=== PATIENT | male | born 1965 | race Caucasian/White ===

== ENCOUNTER → 2017-10-09 | Day surgery (SDC) | payer BC ==
[2017-10-07 15:47] LABS: BASOPHILS # (AUTO) 0.1 (0.0-0.1); BASOPHILS % 0.6 % (0.0-1.0); EOSINOPHILS # (AUTO) 0.7 (0.0-0.4); EOSINOPHILS % 5.8 % (0.0-6.0); HEMOGLOBIN 14.7 g/dL (14.0-18.0); LYMPHOCYTES # (AUTO) 3.6 (1.0-3.2); LYMPHOCYTES % 28.7 % (18.0-39.1); MEAN CORPUSCULAR HEMOGLOBIN 29.6 pg (28-32); MEAN CORPUSCULAR HGB CONC 34.2 g/dL (31-35); MEAN CORPUSCULAR VOLUME 86.7 fL (81-99); MONOCYTES # (AUTO) 0.7 (0.2-0.8); MONOCYTES % 5.9 % (4.4-11.3); NEUTROPHILS # (AUTO) 7.3 (2.1-6.9); NEUTROPHILS % 58.6 % (38.7-80.0); PLATELET COUNT 292 x10e3/uL (140-360); RED BLOOD COUNT 4.96 x10e6/uL (4.3-5.7); RED CELL DISTRIBUTION WIDTH 14.1 % (11.7-14.4)
[2017-10-07 16:06] LABS: ANION GAP 14.7 mmol/L (8-16); BLOOD UREA NITROGEN 15 mg/dL (7-26); BUN/CREATININE RATIO 13 (6-25); CALCIUM 9.5 mg/dL (8.4-10.2); CARBON DIOXIDE 24 mmol/L (22-29); CHLORIDE 103 mmol/L (98-107); CREATININE, SERUM 1.18 mg/dL (0.72-1.25); EST GLOMERULAR FILTRATION RATE > 60 ML/MIN (60-); GLUCOSE 171 mg/dL (74-118); POTASSIUM 3.7 mmol/L (3.5-5.1); SODIUM 138 mmol/L (136-145)
[~2017-10-09] MED LIST: ACETAMINOPHEN 1000 MG/100 ML 0 ML IV ONE; ACETAMINOPHEN 1000 MG/100 ML 100 ML IV ONE; ACETAMINOPHEN 1000 MG/100 ML IV ONE; ATORVASTATIN CA40 MG PO; DESFLURANE 240 ML BTL INH ONE; DEXAMETHASONE SOD PHOS INJ 4 MG/ML VIAL ONE; FENOFIBRATE160 MG PO; FENTANYL CITRATE/PF 100MCG/2 ML INJ ONE; FIASP INJ; JARDIANCE PO; LANTUS100 UNIT/1; LIDOCAINE 1% W/EPINEPHRINE 20 ML VIAL ONE; LIDOCAINE HCL 2% LOCAL INJ 5 ML SDV VIAL INJ ONE; LOSARTAN POTAS100 MG PO; METFORMIN HCL1000 MG PO; MIDAZOLAM HCL 2 MG/2 ML VIAL ONE; MUPIROCIN 2% OINT 22 GM TUBE ONE; NOVOLOG100 UNIT/1 SQ; ONDANSETRON HCL INJ 2 MG/ML VIAL ONE; OXYMETAZOLINE HCL 0.05% NAS 1 SPRAY BTL ONE; PROPOFOL IV EMULSION 10 MG/ML 20 ML VIAL ONE; ROCURONIUM BROMIDE 10 MG/ML 5ML VIAL ONE; SODIUM CHLORIDE/ALOE VERA 14.1GM NASAL GEL ONE; TRESIBA INJ
--- NOTE | 2017-10-09 10:31 | Operative Report ---
DATE OF PROCEDURE: October 09, 2017 PREOPERATIVE DIAGNOSES 1. Nasal obstruction. 2. Deviated septum. 3. Turbinate hypertrophy. POSTOPERATIVE DIAGNOSES 1. Nasal obstruction. 2. Deviated septum. 3. Turbinate hypertrophy. PROCEDURES: Septoplasty and bilateral inferior turbinate reduction (Arthrocare coblation). SIGNIFICANT FINDINGS: Deviated septum to the left. Bilateral inferior turbinate hypertrophy. 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 ANESTHESIA: General endotracheal tube anesthesia. SPECIMENS REMOVED: None. ESTIMATED BLOOD LOSS: Less than 5 mL. COMPLICATIONS: None. INDICATIONS: Patient is a 51-year-old white male with greater than 2-year history of nasal obstruction, worse on the left. The nasal obstruction has been refractory to maximum medical treatment and precludes the use of CPAP for the treatment of his obstructive sleep apnea. Physical exam reveals deviated septum to the left and turbinate hypertrophy. He is scheduled for septoplasty and turbinate reduction for the treatment of deviated septum and turbinate hypertrophy which is causing nasal obstruction. Risks and complications of the procedures were thoroughly discussed with the patient; and they include infection; bleeding; scarring; failure to improve; need for additional operations; persistent nasal obstruction; septal perforation resulting in crusting, irritation and bleeding; chronic pain; inability to smell or taste; chronic headaches; leakage of cerebrospinal fluid or brain fluid; need for blood transfusions; damage to surrounding nerves, blood vessels and muscles. He fully understands and gives consent. PROCEDURE: Patient was taken to the operating room and placed supine on the operating table where general anesthesia was achieved through orotracheal intubation. Eyes were taped. Antibiotics were administered intraoperatively. Injection with 5 mL of 1% lidocaine with 1:100,000 epinephrine was injected into the submucoperichondrial planes bilaterally followed by packing of the nose with cottonoid pledgets soaked with Afrin. The face was prepped and draped in the usual sterile fashion. The cottonoid pledgets were then removed. Thorough examination with a 0-degree rigid nasal endoscope revealed deviated septum to the left, primarily involving the posterior bony septum and the posterior aspect of the maxillary crest. A hemitransfixion incision was made on the left-hand side with a #15 blade. Overlying mucoperichondrium was elevated off the left side with a Denver elevator past the bony cartilaginous junction. The quadrangular cartilage was disarticulated from the bony septum. The deviated bony septum was taken down with Dee double-action rongeurs. The deviated posterior maxillary crest was removed with chisel and hammer. In this way, the septum became straight. The bilateral inferior turbinates were then reduced with the ArthroCare coblator. Multiple passes were made on each side involving the anterior portion. The inferior turbinates were then lateralized with a Boies elevator. Following this, the nasal passages were significantly widened bilaterally. Following this, the hemitransfixion incision was repaired with interrupted 4-0 Monocryl followed by the placement of bilateral silastic septal splints coated with antibiotic ointment. These were held in place with [id number]-[id number]-jfguisc 2-0 silk. Abdullahi Merocel packs were then also inserted bilaterally, which were coated with antibiotic ointment. Strings were tied loosely around the columella anteriorly. Patient was awakened in the operating room, extubated and taken to the recovery room in good condition. Job#: [id number] KADI LUNA
== END | disposition home or self-care (01) ==
LOC: OR 05:48
PROVIDERS: ATTEND Otolaryngology
DX: J34.2 Deviated nasal septum (principal); J34.89 Other specified disorders of nose and nasal sinuses; J34.3 Hypertrophy of nasal turbinates; G47.33 Obstructive sleep apnea (adult) (pediatric); E11.9 Type 2 diabetes mellitus without complications; E78.00 Pure hypercholesterolemia, unspecified; I10 Essential (primary) hypertension; K21.9 Gastro-esophageal reflux disease without esophagitis; Z01.810 Encounter for preprocedural cardiovascular examination; Z01.812 Encounter for preprocedural laboratory examination; Z79.4 Long term (current) use of insulin; Z87.891 Personal history of nicotine dependence
CPT/HCPCS: 30520; 30802; 36415 ×2; 80048; 82948; 85025; 93005; J1100; J2001; J2250; J2405

== ENCOUNTER 2018-08-01 16:39 | Inpatient (IN) | payer BC ==
[~2018-08-01] VITALS: Ht 172.7 cm; Wt 91.8 kg
[~2018-08-01 16:39] MED LIST changes: -ACETAMINOPHEN 1000 MG/100 ML 0 ML IV ONE; -ACETAMINOPHEN 1000 MG/100 ML 100 ML IV ONE; -ACETAMINOPHEN 1000 MG/100 ML IV ONE; -DESFLURANE 240 ML BTL INH ONE; -DEXAMETHASONE SOD PHOS INJ 4 MG/ML VIAL ONE; -FENTANYL CITRATE/PF 100MCG/2 ML INJ ONE; -LIDOCAINE 1% W/EPINEPHRINE 20 ML VIAL ONE; -LIDOCAINE HCL 2% LOCAL INJ 5 ML SDV VIAL INJ ONE; -MIDAZOLAM HCL 2 MG/2 ML VIAL ONE; -MUPIROCIN 2% OINT 22 GM TUBE ONE; -ONDANSETRON HCL INJ 2 MG/ML VIAL ONE; -OXYMETAZOLINE HCL 0.05% NAS 1 SPRAY BTL ONE; -PROPOFOL IV EMULSION 10 MG/ML 20 ML VIAL ONE; -ROCURONIUM BROMIDE 10 MG/ML 5ML VIAL ONE; -SODIUM CHLORIDE/ALOE VERA 14.1GM NASAL GEL ONE
[2018-08-01 18:04] LABS: BASOPHILS # (AUTO) 0.1 (0.0-0.1); BASOPHILS % 0.6 % (0.0-1.0); EOSINOPHILS # (AUTO) 0.6 (0.0-0.4); EOSINOPHILS % 4.9 % (0.0-6.0); HEMATOCRIT 44.8 % (38.2-49.6); HEMOGLOBIN 15.2 g/dL (14.0-18.0); LYMPHOCYTES # (AUTO) 3.9 (1.0-3.2); LYMPHOCYTES % 33.2 % (18.0-39.1); MEAN CORPUSCULAR HEMOGLOBIN 29.2 pg (28-32); MEAN CORPUSCULAR HGB CONC 33.9 g/dL (31-35); MEAN CORPUSCULAR VOLUME 86.2 fL (81-99); MONOCYTES # (AUTO) 0.6 (0.2-0.8); MONOCYTES % 4.9 % (4.4-11.3); NEUTROPHILS # (AUTO) 6.6 (2.1-6.9); PLATELET COUNT 328 x10e3/uL (140-360); RED CELL DISTRIBUTION WIDTH 14.8 % (11.7-14.4)
[2018-08-01 18:08] LABS: INR 0.95; PARTIAL THROMBOPLASTIN TIME 35.6 seconds (23.8-35.5); PROTHROMBIN TIME 13.2 seconds (11.9-14.5)
[2018-08-01 18:17] LABS: ALANINE AMINOTRANSFERASE 19 IU/L (0-55); ALBUMIN 3.9 g/dL (3.5-5.0); ALBUMIN/GLOBULIN RATIO 1.3 (0.8-2.0); ALKALINE PHOSPHATASE 81 IU/L (40-150); ANION GAP 12.9 mmol/L (8-16); BLOOD UREA NITROGEN 13 mg/dL (7-26); BUN/CREATININE RATIO 13 (6-25); CALCIUM 9.5 mg/dL (8.4-10.2); CARBON DIOXIDE 23 mmol/L (22-29); CHLORIDE 107 mmol/L (98-107); CREATININE, SERUM 0.98 mg/dL (0.72-1.25); EST GLOMERULAR FILTRATION RATE > 60 ML/MIN (60-); GLUCOSE 77 mg/dL (74-118); POTASSIUM 3.9 mmol/L (3.5-5.1); SODIUM 139 mmol/L (136-145)
[2018-08-01] MEDS ORDERED: LORAZEPAM INJ 2 MG/ML VIAL IV ONE (18:45)
[2018-08-01] MEDS ORDERED: SODIUM CHLORIDE FLUSH 10 ML SYR INJ PRN (19:15)
--- NOTE | 2018-08-01 19:56 | Diagnostic Imaging Report ---
EXAMINATION: CHEST SINGLE (PORTABLE) INDICATION: ^r/o tumor ^[id number] ^1750 ^Y COMPARISON: None FINDINGS: AP view TUBES and LINES: None. LUNGS: Lungs are well inflated. Lungs are clear. There is no evidence of pneumonia or pulmonary edema. PLEURA: No pleural effusion or pneumothorax. HEART AND MEDIASTINUM: The cardiomediastinal silhouette is unremarkable.. BONES AND SOFT TISSUES: No acute osseous lesion. Soft tissues are unremarkable. UPPER ABDOMEN: No free air under the diaphragm. IMPRESSION: No acute thoracic abnormality. Signed by: Dr. Alessandra Jarvis M.D. on 08/01/2018 7:52 PM
[2018-08-01] MEDS ORDERED: NUVIGIL150 MG PO (20:05)
[2018-08-01] MEDS ORDERED: ACETAMINOPHEN 325 MG TAB PO PRN (20:15)
[2018-08-01] MEDS ORDERED: HYDRALAZINE HCL 20 MG/ML VIAL IV PRN (20:15)
[2018-08-01] MEDS ORDERED: DEXTROSE 50% SYRINGE 50 ML IV PRN (20:15)
[2018-08-01 20:27] LABS: BILIRUBIN,URINE NEGATIVE (NEGATIVE); CLARITY,URINE CLEAR (CLEAR); COLOR,URINE YELLOW (YELLOW); KETONES,URINE NEGATIVE (NEGATIVE); LEUKOCYTE ESTERASE ,URINE NEGATIVE (NEGATIVE); NITRITE,URINE NEGATIVE (NEGATIVE); PROTEIN,URINE DIPSTICK NEGATIVE (NEGATIVE); URINE UROBILINOGEN 0.2 mg/dL (0.2 - 1)
[2018-08-01 20:41] LABS: BACTERIA,URINE RARE /HPF
[2018-08-01] MEDS ORDERED: OMEPRAZOLE40 MG PO (21:03)
[2018-08-01] MEDS: INSULIN LISPRO 100 UNIT/1 ML 3ML VIAL SQ SCH (21:13)
[2018-08-01] MEDS: ONDANSETRON HCL INJ 2MG/ML 2ML 2 MG/ML VIAL IV PRN (22:34)
[2018-08-01] MEDS: MORPHINE SULFATE INJ 4 MG/ML INJ 1ML IV PRN (22:38)
[2018-08-02 03:20] LABS: BASOPHILS % 0.4 % (0.0-1.0); EOSINOPHILS # (AUTO) 0.6 (0.0-0.4); EOSINOPHILS % 4.9 % (0.0-6.0); HEMATOCRIT 43.4 % (38.2-49.6); HEMOGLOBIN 14.4 g/dL (14.0-18.0); LYMPHOCYTES # (AUTO) 3.9 (1.0-3.2); LYMPHOCYTES % 34.2 % (18.0-39.1); MEAN CORPUSCULAR HEMOGLOBIN 28.9 pg (28-32); MEAN CORPUSCULAR HGB CONC 33.2 g/dL (31-35); MONOCYTES # (AUTO) 0.6 (0.2-0.8); MONOCYTES % 5.1 % (4.4-11.3); NEUTROPHILS # (AUTO) 6.3 (2.1-6.9); PLATELET COUNT 286 x10e3/uL (140-360); RED BLOOD COUNT 4.99 x10e6/uL (4.3-5.7); RED CELL DISTRIBUTION WIDTH 14.8 % (11.7-14.4)
[2018-08-02 03:39] LABS: ANION GAP 11.4 mmol/L (8-16); BLOOD UREA NITROGEN 13 mg/dL (7-26); BUN/CREATININE RATIO 15 (6-25); CALCIUM 8.6 mg/dL (8.4-10.2); CARBON DIOXIDE 24 mmol/L (22-29); CHLORIDE 109 mmol/L (98-107); CREATININE, SERUM 0.86 mg/dL (0.72-1.25); EST GLOMERULAR FILTRATION RATE > 60 ML/MIN (60-); GLUCOSE 70 mg/dL (74-118); MAGNESIUM 2.2 MG/DL (1.3-2.1); POTASSIUM 3.4 mmol/L (3.5-5.1); SODIUM 141 mmol/L (136-145)
[2018-08-02 04:01] LABS: FREE T4 (FREE THYROXINE) 0.96 ng/dL (0.9-1.8); THYROID STIMULATING HORMONE 2.938 uIU/mL (0.350-4.940)
[2018-08-02] MEDS ORDERED: POTASSIUM CHLORIDE 20 MEQ TAB CR PO STA (07:00)
[2018-08-02] MEDS: INSULIN LISPRO 100 UNIT/1 ML 3ML VIAL SQ SCH ×4 (07:25→20:58)
[2018-08-02] MEDS ORDERED: FAMOTIDINE 20 MG TAB PO SCH (07:30)
[2018-08-02] MEDS ORDERED: JARDIANCE PO SCH (09:00)
[2018-08-02] MEDS ORDERED: LOSARTAN POTASSIUM 100 MG TAB PO SCH (09:00)
[2018-08-02] MEDS ORDERED: INSULIN DEGLUDEC INJ SCH (09:00)
[2018-08-02] MEDS: MORPHINE SULFATE INJ 4 MG/ML INJ 1ML IV PRN ×2 (11:55→20:46)
[2018-08-02] MEDS: ONDANSETRON HCL INJ 2MG/ML 2ML 2 MG/ML VIAL IV PRN ×2 (12:00→20:47)
[2018-08-02] MEDS ORDERED: LORAZEPAM INJ 2 MG/ML VIAL IV NR (14:30)
--- NOTE | 2018-08-02 14:34 | Consultation ---
DATE OF CONSULTATION: 08/02/2018 Neurology Consult Note HISTORY OF PRESENT ILLNESS: Mr. Marie is a 52-year-old right-hand dominant man with past medical history significant for hypertension, hyperlipidemia, and diabetes mellitus type 2, admitted to [facility] on August 01, 2018 with multiple symptoms affecting both arms and legs. Of note, a stat consult was placed for Neurology at 1906 hours on August 01, 2018. Neurology was not aware of the consult until approximately 10:30 on 08/02/2018 when I arrived to the hospital to follow up on other patients. Approximately one month ago, the patient experienced the sudden onset of numbness and tingling beginning in his left thumb and progressing over the left hemibody within one day. Approximately 2-3 days later, the patient experienced the sudden onset of numbness and tingling in the right hand with progression over the right hemibody within approximately one day. Shortly, after the onset of the numbness and tingling described above, the patient began to experience pain in his biceps, forearms, hamstrings, and calves. The pain is described as muscle soreness. It is constant, but waxes and wanes in intensity. Furthermore, Mr. Marie endorses burning pain in both forearms and the right bicep. The burning pain is constant and is rated at 3/10. Mr. Marie endorses weakness in multiple muscles in both arms and both legs. He endorses poor balance and incoordination. The aforementioned symptoms are constant, but do wax and wane in severity. For the past several months, the patient has experienced pain over the left side of his neck. The pain is described as sharp and does not radiate. Mr. Marie rates the pain is 6 to 7/10. In addition to the pain, the patient reports limited range of motion and crepitus affecting the cervical spine. Mr. Marie reports all of his symptoms began suddenly, but have gradually worsened over the past few weeks. Near the time of onset of the above symptoms, the patient noted a rash over the dorsal forearms only. There was no rash over the face, chest, or back, or legs. The rash was treated with a topical solution and resolved within 1-1/2 weeks. On June 30, 2018, the patient underwent a MRI of the brain with and without contrast at an outside facility. Per the report, there were no significant findings on the MRI of the brain with and without contrast. Of note, the MRI of the brain with and without contrast was performed prior to the onset of numbness and tingling over the right hemibody as well as the other subsequent symptoms. Mr. Marie does not report a positive family history for nerve or muscle diseases. There is no known family history of autoimmune disorders. REVIEW OF SYSTEMS: Weakness of both arms and both legs, numbness/tingling/burning pain of both arms and both legs, impairment of balance and gait, neck pain, muscle tightness/spasm, and rash. Otherwise, a 12-point review of systems is negative. PAST MEDICAL HISTORY: Hypertension, hyperlipidemia, diabetes mellitus type 2, gastroesophageal reflux disease, obstructive sleep apnea, and erectile dysfunction. PAST SURGICAL HISTORY: Bilateral inguinal hernia repair, appendectomy, repair of a deviated septum. PAST HOSPITALIZATIONS: Surgeries/procedures as listed. FAMILY MEDICAL HISTORY: The patient's paternal and maternal grandparents are . The paternal grandfather had diabetes mellitus and an unknown cancer. The paternal grandmother from coronary artery disease with a myocardial infarction. The maternal grandfather from brain cancer. The maternal grandmother from liver cancer. The patient's father is alive. He has coronary artery disease with a prior myocardial infarction. The patient's mother is . The only known significant medical history for the patient's mother was Parkinson disease. The patient has three brothers, all of whom are living. Two brothers have diabetes mellitus. One brother was diagnosed recently with throat cancer. The patient has two children, one son and one daughter, both of whom are alive and healthy. SOCIAL HISTORY: Mr. Marie is . 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 The patient does report current tobacco use. He smokes a few cigarettes once per week. The patient does report current alcohol use. He consumes alcohol once per week. There is no reported current or prior recreational drug use. HOME MEDICATIONS: Nuvigil 150 mg by mouth daily, NovoLog 30 units subcutaneously with meals, losartan 100 mg by mouth daily, metformin 1000 mg by mouth daily, omeprazole 40 mg by mouth daily, Jardiance 12.5 mg by mouth daily, Tresiba 80 units injected daily. ALLERGIES: NO KNOWN DRUG ALLERGIES. NO KNOWN FOOD ALLERGIES. NO KNOWN ALLERGIES TO LATEX. NO KNOWN ALLERGIES TO IODINE OR OTHER CONTRAST MATERIALS. PHYSICAL EXAMINATION: VITAL SIGNS: Height 69 inches, weight 180 pounds, BMI 26.6 kg/m2, blood pressure 136/93 mmHg, pulse 84 beats per minute, respiratory rate 17 breaths per minute, and oxygen saturation 100% on room air. GENERAL: The patient is awake and alert, does not appear distressed. HEENT: Normocephalic, atraumatic. Pupils are equal, round, and reactive to light. Moist mucous membranes. NECK: Supple. No appreciable thyromegaly. No appreciable carotid bruits. CARDIOVASCULAR: S1, S2, regular rate and rhythm. No murmurs, rubs, or gallops. RESPIRATORY: Clear to auscultation bilaterally. No wheezes, rhonchi, or rales. EXTREMITIES: The skin is dry. The skin is warm with the exception of coolness to touch over the feet. No clubbing, cyanosis, or edema. The posterior tibial and dorsalis pedis pulses are 1+ and symmetric. SKIN: No rashes or lesions. NEUROLOGIC: Memory/Attention: The patient is awake and alert, oriented to person, place, time, and situation. Cranial Nerves: Cranial nerve I - not tested. Cranial nerves II, III, IV, and - pupils are equal and round, react briskly to light (from 4 mm to 2 mm). Extraocular movements intact. No nystagmus. Cranial nerve V - sensation to light touch and pinprick is intact in the bilateral V1 through V3 distributions. Strength in the temporalis and masseter muscles is within normal limits. Cranial nerve VII - the face is symmetric as are all facial movements. Strength is within normal limits. Cranial nerve VIII - hearing is intact to finger rub bilaterally. Cranial nerve 9, 10- the soft palate elevates equally and symmetrically. Cranial nerve XI - normal strength of the bilateral sternocleidomastoid and trapezius muscles. Cranial nerve XII - the tongue protrudes midline and moves symmetrically from [id number]. Strength: Bulk is normal. Muscle consistency is normal. Strength is 5/5 in the right deltoid, biceps, triceps, wrist flexors and extensors, finger flexors and extensors, intrinsic hand muscles, hip flexors, knee flexors and extensors, ankle dorsiflexion, plantar flexion, and intrinsic foot muscles. Strength in the left arm and left leg is 4 to 4+/5 with superimposed effort dependent weakness. Tone is normal. DTRs: Deep tendon reflexes are 3+ and symmetric at the triceps, biceps, brachioradialis, and patellas. Deep tendon reflexes are 1+ and symmetric at the Achilles. Plantar responses are flexor bilaterally. Sensation: Sensation is intact to light touch in both arms and both legs. Sensation is diminished to pinprick over the right leg. Sensation to temperature is diminished over both legs. Vibratory sensation is absent at the toes, but intact at the ankles and fingers. Cerebellar: Ywwfen-sqyd-gqigxl and heel-devi movements are dysmetric on the left, outside the bounds of paresis. Gait: Deferred. Speech: Spontaneous speech is normal without appreciable dysarthria or aphasia. Repetition is intact. Involuntary movements: None. Pronator Drift: None. LABORATORY DATA: A recent basic metabolic panel is significant for a potassium of 3.4, chloride of 109, glucose of 70, and magnesium of 2.2. Liver function panel collected on August 01, 2018, is within normal limits. Hemoglobin A1c 6.1, TSH 2.938, free T4 0.96. The CBC with differential and platelets reveals a white blood cell count of 11.40 with 55.0% neutrophils, 34.2% lymphocytes, 5.1% monocytes, 4.9% eosinophils, and 0.4% basophils. The hemoglobin and hematocrit are 14.2 and 43.4, respectively. The platelet count is 286. PT 13.2, INR 0.95, PTT 35.6. A urinalysis collected on August 01, 2018, is significant for 3+ glucose. A urine culture collected on August 01, 2018 is in progress. Blood cultures collected on August 01, 2018, pending. DIAGNOSTIC STUDIES: Chest x-ray 08/01/2018: No acute thoracic abnormality. ASSESSMENT AND PLAN: Mr. Marie is a 52-year-old right-hand dominant man with multiple vascular risk factors, admitted to [facility] with multiple symptoms as detailed in the history of present illness. The patient's neurological examination is significant for mild left hemiparesis, with superimposed effort dependent weakness, diminished deep tendon reflexes at the Achilles, decreased sensation to pinprick over the right leg, decreased sensation to temperature over both legs, and absent vibratory sensation at the toes. Furthermore, the neurological examination reveals dysmetria of szbqds-pciy-rbhrjx and heel-devi movements on the left, outside the bounds of paresis. Of note, there is no pronator drift on neurological examination. The patient's laboratory data and other diagnostic studies have been reviewed and are documented above. 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 However, the laterality on neurological examination is suspicious for stroke. However, this should have been seen on the prior MRI of the brain without contrast. A lesion or lesions, in the cervical spine could cause the patient's multitude of symptoms as well. RECOMMENDATIONS: As follows: 1. An MRI of the brain without contrast will be performed. 2. An MRI of the cervical spine without contrast will be performed. 3. Muscle enzymes will be drawn. 4. Further evaluation with an NCV/EMG as an outpatient may be necessary. 5. Defer treatment of the remaining medical comorbidities to the primary and other services following the patient. Thank you for this consultation. I will continue to follow the patient while he remains in the hospital. TIME SPENT: 70 minutes. Heather Garcia MD CP/KIERSTEN /[id number] JEREMY
[2018-08-02 15:49] VITALS: BP 133/91
[2018-08-02 15:50] VITALS: BP 133/91
[2018-08-02 15:55] VITALS: BP 133/91
--- NOTE | 2018-08-02 15:58 | Diagnostic Imaging Report ---
Exam: Brain MRI without IV contrast History: Unilateral weakness, sensory disturbance, ataxia Comparison studies: None Technique: Sagittal and axial T2 FS, axial DWI, axial T2*GRE, axial T1 FLAIR and axial coronal T2 FLAIR. Intravenous contrast: None Findings: Scalp: Normal in signal. No masses. Bone marrow: Normal in signal intensity. Brain sulci: Appropriate for age. Ventricles: Normal in size. No hydrocephalus. Extra axial spaces: No mass, no fluid collection. Parenchyma: No mass, hemorrhage or acute ischemia. A few scattered small T2 FLAIR hyperintense foci in the supratentorial white matter are nonspecific but most compatible with chronic microvascular ischemic changes. Suprasellar region: No abnormalities. Craniocervical junction: Patent foramen magnum. No Chiari malformation. Vessels: Normal flow-voids in the arteries and sinuses. Included paranasal sinuses: Scattered nonspecific T2 hyperintense mucosal thickening throughout the bilateral ethmoid air cells and maxillary sinuses. IMPRESSION: 1. No acute intracranial abnormalities. 2. Minimal supratentorial chronic microvascular ischemic changes. Signed by: Dr. Akira Fay M.D. on 08/02/2018 3:55 PM
--- NOTE | 2018-08-02 16:16 | Diagnostic Imaging Report ---
Exam: Cervical spine MRI without IV contrast History: Unilateral weakness, sensory disturbance, ataxia Comparison studies: None Technique: Sagittal T1, T2 and IR, axial T2 and axial gradient echo Intravenous contrast: None Findings: Exam limited by artifacts related to patient motion. Alignment: Mild kyphotic curvature from C4 to C7. Cervicomedullary junction: No abnormalities. Patent foramen magnum. Soft tissues: No T2 hyperintense inflammatory changes. Spinal cord: Focal increased T2 signal changes in the cord centered at C4-C5 at the location of severe degenerative canal stenosis indicative of compressive myelopathy (i.e. edema, ischemia and/or gliosis). Vertebrae: No fractures, infection or neoplasm. Degenerative changes: C2-C3: Mildly degenerated disc. Uncovertebral facet arthrosis result in moderate left foraminal stenosis. No significant canal or right foraminal stenosis. C3-C4: Mildly degenerated disc. Small disc osteophyte complex, uncovertebral arthrosis and facet arthrosis with moderate bilateral foraminal stenosis and mild canal stenosis. C4-C5: Moderately degenerated disc. Disc osteophyte complex, uncovertebral arthrosis and facet arthrosis with severe canal stenosis, severe left foraminal stenosis and moderate right foraminal stenosis. C5-C6: C5-C6: Moderately degenerated disc. Disc osteophyte complex and uncovertebral arthrosis with mild canal stenosis and moderate bilateral foraminal stenosis. C6-C7: Moderately degenerated disc. Asymmetric left disc osteophyte complex and uncovertebral arthrosis with mild canal stenosis and moderate bilateral foraminal stenosis). C7-T1: Mild left uncovertebral arthrosis with minimal left foraminal stenosis. Patent canal and right foramen. IMPRESSION: Limited exam due to motion artifacts. In spite of limitations: 1. 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 2. Moderately degenerated disks from C4 to C6. 3. Mild canal stenosis at C3-C4, C5-C6 and at C6-C7. 4. Varying degrees of moderate to severe degenerative foraminal stenosis due to uncovertebral and facet arthrosis from C2 to C7 as described. Findings discussed with ADOLPH Smith at 4:10 PM on 08/02/2018. Signed by: Dr. Akira Fay M.D. on 08/02/2018 4:12 PM
[2018-08-02 19:00] VITALS: BP 112/88
[2018-08-02 21:00] VITALS: BP 112/88
[2018-08-03] VITALS (8 sets, daily range): BP systolic 120–145; BP diastolic 76–93
[2018-08-03 04:44] LABS: BASOPHILS # (AUTO) 0.1 (0.0-0.1); BASOPHILS % 0.6 % (0.0-1.0); EOSINOPHILS # (AUTO) 0.6 (0.0-0.4); HEMOGLOBIN 14.3 g/dL (14.0-18.0); LYMPHOCYTES # (AUTO) 3.3 (1.0-3.2); LYMPHOCYTES % 33.5 % (18.0-39.1); MEAN CORPUSCULAR HEMOGLOBIN 28.9 pg (28-32); MEAN CORPUSCULAR HGB CONC 32.5 g/dL (31-35); MEAN CORPUSCULAR VOLUME 88.9 fL (81-99); MONOCYTES # (AUTO) 0.7 (0.2-0.8); MONOCYTES % 6.7 % (4.4-11.3); NEUTROPHILS # (AUTO) 5.2 (2.1-6.9); NEUTROPHILS % 52.8 % (38.7-80.0); PLATELET COUNT 277 x10e3/uL (140-360); RED BLOOD COUNT 4.95 x10e6/uL (4.3-5.7); RED CELL DISTRIBUTION WIDTH 14.6 % (11.7-14.4)
[2018-08-03 05:02] LABS: BLOOD UREA NITROGEN 12 mg/dL (7-26); BUN/CREATININE RATIO 13 (6-25); CALCIUM 9.2 mg/dL (8.4-10.2); CARBON DIOXIDE 26 mmol/L (22-29); CHLORIDE 102 mmol/L (98-107); CREATININE, SERUM 0.93 mg/dL (0.72-1.25); EST GLOMERULAR FILTRATION RATE > 60 ML/MIN (60-); GLUCOSE 120 mg/dL (74-118); MAGNESIUM 2.1 MG/DL (1.3-2.1); SODIUM 136 mmol/L (136-145)
[2018-08-03] MEDS: PANTOPRAZOLE SOD 40 MG TABEC PO SCH ×3 (06:00→07:24)
[2018-08-03] MEDS: MORPHINE SULFATE INJ 4 MG/ML INJ 1ML IV PRN ×3 (06:04→13:01)
[2018-08-03] MEDS: INSULIN LISPRO 100 UNIT/1 ML 3ML VIAL SQ SCH ×4 (07:30→21:00)
[2018-08-03] MEDS: GABAPENTIN 300 MG CAP PO SCH ×3 (12:02→20:36)
[2018-08-03] MEDS: DEXAMETHASONE SOD PHOS INJ 4 MG/ML VIAL IV SCH (23:52)
[2018-08-04 00:58] VITALS: BP 132/78
--- NOTE | 2018-08-04 02:45 | Consultation ---
DATE OF CONSULTATION: 08/03/2018 REASON FOR CONSULTATION: Cervical myelopathy. HISTORY OF PRESENT ILLNESS: The patient is a 52-year-old man who first started having neck pain about six months ago. About a month ago, the pain started to radiate down the left arm to the left thumb and within a day, he developed numbness and clumsiness in the left arm and hand. This quickly progressed to bilateral leg stiffness and weakness, worse on the left and marked gait instability as well as contralateral radiating pain and numbness and clumsiness in the right arm and hands. His left-sided symptoms remain more severe than the right side. Over the past week, he has fallen frequently and has required the use of a walker. He presented to the emergency room, where he underwent a Neurology workup. An MRI of the cervical spine was performed, which revealed cervical cord compression as described below, and I was consulted. The patient denies any bowel or bladder incontinence. He has a dense sensory level below the nipple line. PHYSICAL EXAMINATION: GENERAL: The patient is alert and oriented x3 with intact memory and fluent speech. NEUROLOGIC: Cranial nerves are intact. The Lhermitte's phenomenon is present with neck extension. Motor examination reveals bilateral deltoid weakness graded as 3/5. He is unable to lift his arms above the horizontal. Biceps and triceps strength are graded as 4/5. He has marked weakness of the left hand and cannot fully extend his fingers on the left hand. He has severe clumsiness of both hands, worse on the left. Motor tone is markedly increased in both legs affecting his gait. He has a markedly spastic gait and is barely able to maintain his balance with a walker. He has a dense sensory level at the nipple line. IMAGING DATA: MRI of the cervical spine reveals severe cervical spinal stenosis at C4-C5 due to a large disk osteophyte complex with compression of the cord and myelomalacia. He has moderate spinal stenosis at C5-C6 and mild stenosis at C6-C7. 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 RECOMMENDATIONS: I recommend C4-C5 and C5-C6 anterior cervical diskectomy, microsurgical osteophyte resection, allograft fusion, and plating. The risks, benefits, and alternatives were explained to the patient and his in great detail. Specifically risks of infection, bleeding, paralysis, non improvement after the surgery with persistent weakness, numbness, and gait disturbance, the possibility of bowel or bladder incontinence, the possibility of nonfusion and hardware failure, the possibility of hoarseness and recurrent laryngeal nerve palsy or swallowing problems, and the possibility of future problems at the adjacent levels were explained to the patient. He fully understands all these issues and gives informed consent to proceed with surgery tomorrow. Fei Bhatti MD PP/MODL /[id number]
[2018-08-04 04:26] LABS: BASOPHILS % 0.3 % (0.0-1.0); EOSINOPHILS # (AUTO) 0.1 (0.0-0.4); EOSINOPHILS % 0.9 % (0.0-6.0); HEMATOCRIT 45.7 % (38.2-49.6); HEMOGLOBIN 15.7 g/dL (14.0-18.0); LYMPHOCYTES # (AUTO) 1.2 (1.0-3.2); LYMPHOCYTES % 11.4 % (18.0-39.1); MEAN CORPUSCULAR HEMOGLOBIN 29.5 pg (28-32); MEAN CORPUSCULAR HGB CONC 34.4 g/dL (31-35); MONOCYTES # (AUTO) 0.1 (0.2-0.8); MONOCYTES % 1.2 % (4.4-11.3); NEUTROPHILS # (AUTO) 8.7 (2.1-6.9); NEUTROPHILS % 85.7 % (38.7-80.0); PLATELET COUNT 329 x10e3/uL (140-360); RED BLOOD COUNT 5.33 x10e6/uL (4.3-5.7); RED CELL DISTRIBUTION WIDTH 14.2 % (11.7-14.4)
[2018-08-04 04:30] LABS: MEAN CORPUSCULAR VOLUME 85.7 fL (81-99)
[2018-08-04 04:48] LABS: ANION GAP 14.7 mmol/L (8-16); BLOOD UREA NITROGEN 15 mg/dL (7-26); BUN/CREATININE RATIO 17 (6-25); CALCIUM 9.9 mg/dL (8.4-10.2); CARBON DIOXIDE 23 mmol/L (22-29); CHLORIDE 103 mmol/L (98-107); CHOL/HDL RATIO 5.3 (3.9-4.7); CHOLESTEROL 211 MD/DL (0-199); CREATININE, SERUM 0.87 mg/dL (0.72-1.25); EST GLOMERULAR FILTRATION RATE > 60 ML/MIN (60-); GLUCOSE 178 mg/dL (74-118); HDL CHOLESTEROL 40 MG/DL (40-60); LDL CHOLESTEROL 119 MG/DL (60-130); POTASSIUM 4.7 mmol/L (3.5-5.1); SODIUM 136 mmol/L (136-145); TRIGLYCERIDES 259 MG/DL (0-149)
[2018-08-04] MEDS: DEXAMETHASONE SOD PHOS INJ 4 MG/ML VIAL IV SCH ×4 (06:00→23:37)
[2018-08-04] MEDS: PANTOPRAZOLE SOD 40 MG TABEC PO SCH (07:30)
[2018-08-04] MEDS: INSULIN LISPRO 100 UNIT/1 ML 3ML VIAL SQ SCH ×4 (07:30→21:09)
[2018-08-04] MEDS ORDERED: BACITRACIN 50,000 UNIT VIAL ONE (08:09)
[2018-08-04] MEDS ORDERED: GELATIN SPONGE 12-7MM ONE (08:09)
[2018-08-04] MEDS ORDERED: THROMBIN FOR SOLN 5,000 UNIT VIAL ONE (08:09)
[2018-08-04] MEDS ORDERED: BUPIVACAINE 0.5%/EPI 30 ML SDV INJ ONE (08:09)
[2018-08-04 08:44] VITALS: BP 135/77
[2018-08-04 09:00] VITALS: BP 135/77
[2018-08-04] MEDS: DOCUSATE SODIUM 100 MG CAP PO SCH ×2 (09:00→17:30)
[2018-08-04] MEDS: POLYETHYLENE GLYCOL 3350 17 GM PACK PO SCH ×2 (09:00→17:30)
[2018-08-04] MEDS: GABAPENTIN 300 MG CAP PO SCH ×3 (09:00→21:07)
[2018-08-04] MEDS ORDERED: CEFAZOLIN SOD 1 GM VIAL IV SCH (10:00)
[2018-08-04] MEDS ORDERED: CEFAZOLIN SOD 2 GM/D5W 50ML 50 ML IV ONE (10:11)
[2018-08-04] MEDS: LACTATED RINGER'S 1,000 ML IV SCH ×2 (10:48→19:08)
[2018-08-04] MEDS ORDERED: CARISOPRODOL 350 MG TAB PO PRN (11:00)
[2018-08-04] MEDS ORDERED: ONDANSETRON HCL INJ 2MG/ML 2ML 2 MG/ML VIAL IV PRN (11:00)
[2018-08-04] MEDS ORDERED: HYDROMORPHONE 2MG/ML 2 MG/ML ML IV PRN (11:00)
[2018-08-04] MEDS ORDERED: ACETAMINOPHEN 325 MG TAB PO PRN (11:00)
[2018-08-04] MEDS ORDERED: MORPHINE SULFATE 5 MG/ML VIAL IM PRN (11:00)
[2018-08-04] MEDS ORDERED: OXYCODONE/ACETAMINOPHEN 5-325 1 EACH TABLET PO PRN (11:00)
[2018-08-04] MEDS ORDERED: ZOLPIDEM TARTRATE 5 MG TAB PO PRN (11:00)
[2018-08-04] MEDS ORDERED: CEPACOL SORE THROAT LOZENGES PO PRN (11:00)
[2018-08-04] MEDS ORDERED: PROMETHAZINE HCL (IM) 25 MG/ML VIAL IM PRN (11:00)
[2018-08-04] MEDS ORDERED: MAGNESIUM/ALUMINUM/SIMETHICONE 30 ML UDC PO PRN (11:00)
[2018-08-04] MEDS ORDERED: FENTANYL CITRATE/PF 100MCG/2 ML INJ ONE ×2 (12:54→18:56)
[2018-08-04] MEDS ORDERED: CEFAZOLIN SOD 1 GM/NS 50ML 50 ML IV SCH (14:00)
[2018-08-04] MEDS ORDERED: FENOFIBRATE145 MG PO (16:00)
[2018-08-04] MEDS ORDERED: VITAMIN D250000 UNIT PO (16:00)
[2018-08-04] MEDS ORDERED: NIACIN500 M2 PO (16:00)
[2018-08-04] MEDS ORDERED: PREDNISONE20 MG PO (16:00)
[2018-08-04] MEDS ORDERED: LIPITOR40 MG PO (16:00)
[2018-08-04] MEDS ORDERED: FLUTICASONE INH ×2 (16:00)
[2018-08-04 17:03] VITALS: BP 112/64
[2018-08-04] MEDS: CEFAZOLIN SOD 1 GM/NS 50ML 50 ML IV SCH ×2 (17:30→21:09)
[2018-08-04] MEDS ORDERED: ESMOLOL HCL 100MG/10ML 10 MG/ML VIAL ONE (17:33)
[2018-08-04] MEDS ORDERED: ACETAMINOPHEN 1000 MG/100 ML IV ONE (17:33)
[2018-08-04] MEDS ORDERED: GLYCOPYRROLATE INJ 1MG/ 5 ML SYR ONE (17:33)
[2018-08-04] MEDS ORDERED: NEOSTIGMINE 5 MG/5ML SYR ONE (17:33)
[2018-08-04] MEDS ORDERED: DESFLURANE 240 ML BTL INH ONE (17:33)
[2018-08-04] MEDS ORDERED: ROCURONIUM BROMIDE 10 MG/ML 5ML VIAL ONE (17:33)
[2018-08-04] MEDS ORDERED: LIDOCAINE HCL 2% LOCAL INJ 5 ML SDV VIAL INJ ONE (17:33)
[2018-08-04] MEDS ORDERED: PROPOFOL IV EMULSION 10 MG/ML 20 ML VIAL ONE (17:33)
[2018-08-04] MEDS ORDERED: DEXAMETHASONE SOD PHOS INJ 4 MG/ML VIAL ONE (17:33)
[2018-08-04] MEDS ORDERED: ONDANSETRON HCL INJ 2MG/ML 2ML 2 MG/ML VIAL ONE (17:33)
[2018-08-04] MEDS ORDERED: MIDAZOLAM HCL 2 MG/2 ML VIAL ONE (18:56)
[2018-08-04] MEDS ORDERED: KETAMINE HCL INJ 50 MG/ML 10 ML VIAL ONE (18:56)
[2018-08-04 20:00] VITALS: BP 124/70
--- NOTE | 2018-08-04 20:33 | Operative Report ---
DATE OF PROCEDURE: 08/04/2018 SURGEON: Fei Bhatti MD PREOPERATIVE DIAGNOSES: C4-5 and C5-6 spondylosis and disk herniations with myelopathy and myelomalacia, M50.020. POSTOPERATIVE DIAGNOSES: C4-5 and C5-6 spondylosis and disk herniations with myelopathy and myelomalacia, M50.020. PROCEDURES: 1. C4-5 anterior cervical diskectomy and microsurgical osteophyte resection and allograft fusion, 28979. 2. C5-6 anterior cervical diskectomy and microsurgical osteophyte resection and allograft fusion, 93602. 3. Preparation of tricortical iliac crest allograft, 02281. 4. C4-5 and C5-6 anterior cervical plate and screw fixation, 09662. ANESTHESIA: General. INDICATIONS: The patient is a 52-year-old man who presents with C4-5 and C5-6 spondylosis and disk herniations producing severe spinal stenosis at C4-5, moderate spinal stenosis at C5-6, cord compression at C4-5 with myelomalacia. He has a severe myelopathy syndrome with quadriparesis. He was taken to the operating room for two-level anterior cervical decompression and fusion. DESCRIPTION OF PROCEDURE: After induction of general anesthesia, the patient was placed on the operating table in the supine position. The right side of the neck was prepped and draped in a sterile fashion. The fluoroscopic C-arm was positioned in cross-table lateral orientation. A transverse incision was created on the right side of the neck superimposed on the C5 vertebral body as determined by fluoroscopy. The platysma was divided in line with the incision, and a subplatysmal dissection was carried out and avascular plane dissection was developed medial to the sternocleidomastoid muscle and superior to the omohyoid muscle and was followed medial to the carotid sheath to the anterior border of the cervical spine. The deep cervical fascia was opened. The esophagus was retracted to the left. The attachments of longus colli muscles to the anterolateral aspects of vertebral bodies of C4, C5, and C6 were divided. The anterior longitudinal ligament was resected. Jackson posts were inserted into C4 and C6, and the Jackson distractor was used to distract both disk spaces simultaneously. The anterior annuli of the disks were incised with a #11 blade. The degenerated contents of both split disks were then thoroughly evacuated with angled curettes and pituitary rongeurs. The posterior osteophytes were then meticulously drilled with a 2-mm cutting bur on a high-speed drill and they were completely removed. Very large osteophytes were encountered at both levels, which were removed. The posterior annulus of the disk, herniated disk material, and the posterior longitudinal ligament were elevated away from the dura with a micro hook and resected layer by layer until the dura was fully exposed and decompressed at both levels. The medial aspects of the uncinate processes were resected bilaterally to further expose any compressed origins of the corresponding nerve roots. After satisfactory decompression had been achieved, the endplates were prepared for fusion. Two pieces of tricortical iliac crest allograft were cut to size and shapes of the disk spaces and were inserted into disk spaces under distraction and fluoroscopic guidance. The distraction was released and distraction posts were removed. A Synthes CSLP variable type anterior cervical plate measuring 37 mm was selected and was affixed to the vertebral bodies of C4, C5, and C6 with 3 pairs of 16 x 4.35 mm screws. All screw holes were drilled and tapped on the lateral fluoroscopic guidance. All screws were locked with the appropriate locking screws. An excellent construct was obtained. The wound was copiously irrigated with bacitracin solution. Meticulous hemostasis was secured. Retraction was removed. A small Hemovac drain was placed over the plate and brought out through a separate stab incision. The platysma was closed with 3-0 Vicryl sutures. The skin was closed with 4-0 Monocryl sutures in subcuticular fashion. Steri-Strips and dressing were applied. The patient was awakened, extubated, and taken to Postanesthesia Care Unit in stable condition. No intraoperative complications were encountered. Estimated blood loss was 30 mL. Fei Bhatti MD PP/KIERSTEN /[id number]
[2018-08-04] MEDS ORDERED: NON-FORMULARY MEDICATION (Atorvastatin Calcium (Lipitor) 40 MG) PO SCH (21:00)
[2018-08-04] MEDS: NIACIN 500 MG TABSR PO SCH (21:00)
[2018-08-04] MEDS: ATORVASTATIN 40 MG TAB PO SCH (21:07)
[2018-08-04] MEDS: MORPHINE SULFATE INJ 4 MG/ML INJ 1ML IV PRN (21:24)
[2018-08-05] VITALS (8 sets, daily range): BP systolic 110–140; BP diastolic 60–88
[2018-08-05] MEDS: LACTATED RINGER'S 1,000 ML IV SCH (00:42)
[2018-08-05 03:56] LABS: BASOPHILS % 0.1 % (0.0-1.0); HEMOGLOBIN 14.2 g/dL (14.0-18.0); LYMPHOCYTES # (AUTO) 1.4 (1.0-3.2); LYMPHOCYTES % 10.5 % (18.0-39.1); MEAN CORPUSCULAR HEMOGLOBIN 29.3 pg (28-32); MEAN CORPUSCULAR HGB CONC 33.8 g/dL (31-35); MEAN CORPUSCULAR VOLUME 86.6 fL (81-99); MONOCYTES # (AUTO) 0.4 (0.2-0.8); MONOCYTES % 2.8 % (4.4-11.3); NEUTROPHILS # (AUTO) 11.5 (2.1-6.9); NEUTROPHILS % 85.9 % (38.7-80.0); PLATELET COUNT 376 x10e3/uL (140-360); RED BLOOD COUNT 4.85 x10e6/uL (4.3-5.7); RED CELL DISTRIBUTION WIDTH 14.6 % (11.7-14.4)
[2018-08-05 04:15] LABS: ANION GAP 13.4 mmol/L (8-16); BLOOD UREA NITROGEN 20 mg/dL (7-26); BUN/CREATININE RATIO 22 (6-25); CALCIUM 9.5 mg/dL (8.4-10.2); CARBON DIOXIDE 25 mmol/L (22-29); CHLORIDE 101 mmol/L (98-107); CREATININE, SERUM 0.93 mg/dL (0.72-1.25); EST GLOMERULAR FILTRATION RATE > 60 ML/MIN (60-); GLUCOSE 245 mg/dL (74-118); MAGNESIUM 2.4 MG/DL (1.3-2.1); POTASSIUM 4.4 mmol/L (3.5-5.1); SODIUM 135 mmol/L (136-145)
[2018-08-05] MEDS: DEXAMETHASONE SOD PHOS INJ 4 MG/ML VIAL IV SCH ×3 (06:04→18:03)
[2018-08-05] MEDS: CEFAZOLIN SOD 1 GM/NS 50ML 50 ML IV SCH (06:04)
[2018-08-05] MEDS ORDERED: CHLORASEPTIC SPRAY 177 ML BTL MM PRN (06:30)
[2018-08-05] MEDS ORDERED: BISACODYL 5 MG TAB EC PO NR (06:45)
[2018-08-05] MEDS: MORPHINE SULFATE INJ 4 MG/ML INJ 1ML IV PRN ×2 (06:45→15:51)
--- NOTE | 2018-08-05 06:50 | Diagnostic Imaging Report ---
Cervical Spine, 2 views HISTORY: Pain COMPARISON: None. FINDINGS: Limited sensitivity for detection of subtle fractures and ligamentous abnormalities. On the lateral view, the cervical spine is visualized from the skull base to C7. The alignment is normal. No acute displaced fracture involving the visualized cervical spine. Status post anterior fusion of C4-C6. Surgical drain in place. Hardware is intact. IMPRESSION: Postsurgical changes of anterior C4-C6 fusion. Intact hardware. Surgical drain in place. Signed by: Dr. Lizandro Christian MD on 08/05/2018 6:47 AM
[2018-08-05] MEDS: FENOFIBRATE 145 MG TAB PO SCH (08:31)
[2018-08-05] MEDS: GABAPENTIN 300 MG CAP PO SCH ×3 (08:31→20:44)
[2018-08-05] MEDS: PANTOPRAZOLE SOD 40 MG TABEC PO SCH (08:31)
[2018-08-05] MEDS: POLYETHYLENE GLYCOL 3350 17 GM PACK PO SCH ×2 (08:31→16:52)
[2018-08-05] MEDS: DOCUSATE SODIUM 100 MG CAP PO SCH ×2 (08:31→16:52)
[2018-08-05] MEDS: INSULIN LISPRO 100 UNIT/1 ML 3ML VIAL SQ SCH ×4 (08:32→21:58)
[2018-08-05] MEDS ORDERED: FENOFIBRATE 145 MG TAB PO SCH (09:00)
--- NOTE | 2018-08-05 17:44 | Consultation ---
DATE OF CONSULTATION: 08/05/2018 I would like to thank Dr. Bhatti and Dr. Giles for asking me to see Mr. Marie in consultation. REASON FOR CONSULTATION: Myelopathy with impaired gait immobility, status post ACDF at C4-5 and C5-6 with already showing improvement. HISTORY: Mr. Marie is a pleasant unfortunate 52-year-old male who about six months ago started to have neck pain and arm weakness, history of diabetes, and hypertension, who underwent workup with an MRI of the brain which was negative. The patient continued to have these symptoms. He was just recently admitted and was seen by Dr. Garcia, who started workup and it was determined that the patient had cervical myelopathy. He underwent ACDF by Dr. Bhatti yesterday. He is already starting to show improvement and he says he feels a little bit stronger. I am being asked to evaluate for rehab needs. PAST MEDICAL HISTORY: Includes hypertension, diabetes, hyperlipidemia, reflux, sleep apnea, erectile dysfunction, bilateral inguinal hernia repair, appendectomy, and deviated septum repair. REVIEW OF SYSTEMS: NEUROLOGIC: Weakness in arms and legs hands as well as toes. Rest of review of systems essentially negative. FAMILY HISTORY: The patient has cancer and diabetes family and also has coronary artery disease in his father. SOCIAL HISTORY: He lives with his in a one-story home, was otherwise ambulatory, getting around. He does not use walker or cane. 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 HABITS: He drinks alcohol about once a week. Nonsmoker. No drugs. ALLERGIES: NO KNOWN DRUG ALLERGIES. LABORATORY STUDIES: White cell count of 13.37, hemoglobin 14.2, hematocrit 42.0, and platelets of 376. Sodium is 135, potassium 4.4, BUN of 20, and creatinine 0.93. IMAGING: Cervical spine x-ray from earlier today shows postsurgical changes of anterior C4 through C6 fusion with intact hardware and drain in place. Therapy has not been initiated just yet. PHYSICAL EXAMINATION: GENERAL: He is awake, alert, oriented, no acute distress at. EYES: Gaze is conjugate with eyes midline, dysarthria. NECK: Supple. HEART: Regular. LUNGS: Fair air entry, drain is in place. EXTREMITIES: He has functional range of motion to arms. Good range of motion of the legs. He has . He has "spotty" more comfortable. His glucose. Bilirubin increased at this time. The patient denies any bowel or bladder incontinence. IMPRESSION: 1. Cervical myelopathy with resulting impaired mobility, gait, or coordination as well as impaired transfers and ability to mobilize safely. 2. The patient with diabetes. 3. Hypertension. PLAN: We will re-initiate physical therapy, but he should be a very good rehab candidate given his current situation is improved. Precautions falls which represents . Thank you once again for allowing me to participate in care of this pleasant, but unfortunate patient. Arya Kirby DO RPL/MODL /[id number]
[2018-08-05] MEDS: ATORVASTATIN 40 MG TAB PO SCH (20:44)
[2018-08-05] MEDS: NIACIN 500 MG TABSR PO SCH (20:44)
[2018-08-06] VITALS: BP 136/67
[2018-08-06] MEDS: DEXAMETHASONE SOD PHOS INJ 4 MG/ML VIAL IV SCH ×3 (00:20→11:39)
[2018-08-06 04:00] VITALS: BP 126/77
[2018-08-06 04:11] LABS: BASOPHILS % 0.1 % (0.0-1.0); HEMATOCRIT 45.1 % (38.2-49.6); HEMOGLOBIN 15.5 g/dL (14.0-18.0); LYMPHOCYTES # (AUTO) 1.3 (1.0-3.2); LYMPHOCYTES % 8.5 % (18.0-39.1); MEAN CORPUSCULAR HEMOGLOBIN 29.5 pg (28-32); MEAN CORPUSCULAR HGB CONC 34.4 g/dL (31-35); MEAN CORPUSCULAR VOLUME 85.7 fL (81-99); MONOCYTES # (AUTO) 0.4 (0.2-0.8); MONOCYTES % 2.8 % (4.4-11.3); NEUTROPHILS # (AUTO) 13.6 (2.1-6.9); NEUTROPHILS % 87.8 % (38.7-80.0); PLATELET COUNT 407 x10e3/uL (140-360); RED BLOOD COUNT 5.26 x10e6/uL (4.3-5.7); RED CELL DISTRIBUTION WIDTH 14.6 % (11.7-14.4)
[2018-08-06 04:27] LABS: ANION GAP 15.6 mmol/L (8-16); BLOOD UREA NITROGEN 24 mg/dL (7-26); BUN/CREATININE RATIO 24 (6-25); CALCIUM 9.8 mg/dL (8.4-10.2); CARBON DIOXIDE 23 mmol/L (22-29); CHLORIDE 100 mmol/L (98-107); CREATININE, SERUM 0.98 mg/dL (0.72-1.25); EST GLOMERULAR FILTRATION RATE > 60 ML/MIN (60-); GLUCOSE 334 mg/dL (74-118); MAGNESIUM 2.2 MG/DL (1.3-2.1); POTASSIUM 4.6 mmol/L (3.5-5.1); SODIUM 134 mmol/L (136-145)
[2018-08-06 08:00] VITALS: BP 126/77
[2018-08-06] MEDS: PANTOPRAZOLE SOD 40 MG TABEC PO SCH (08:18)
[2018-08-06] MEDS: GABAPENTIN 300 MG CAP PO SCH ×2 (08:18→15:57)
[2018-08-06] MEDS: POLYETHYLENE GLYCOL 3350 17 GM PACK PO SCH ×2 (08:18→17:15)
[2018-08-06] MEDS: FENOFIBRATE 145 MG TAB PO SCH (08:18)
[2018-08-06] MEDS: DOCUSATE SODIUM 100 MG CAP PO SCH ×2 (08:18→17:15)
[2018-08-06] MEDS: INSULIN LISPRO 100 UNIT/1 ML 3ML VIAL SQ SCH ×3 (08:19→17:16)
[2018-08-06 08:43] VITALS: BP 132/76
[2018-08-06 13:11] VITALS: BP 134/80
[2018-08-06] MEDS ORDERED: ACETAMINOPHEN325 M1 PO (15:32)
[2018-08-06] MEDS ORDERED: Sodium Chloride Flush INJ (15:32)
[2018-08-06] MEDS ORDERED: HDR2V IV (15:32)
[2018-08-06] MEDS ORDERED: DEXTROSE 50%-WA50 M1 IV (15:32)
[2018-08-06] MEDS ORDERED: HYDRALAZIN20 MG/1 ML IV (15:32)
[2018-08-06] MEDS ORDERED: Chloraseptic MM (15:32)
[2018-08-06] MEDS ORDERED: AMBIEN5 MG PO (15:32)
[2018-08-06] MEDS ORDERED: NIACIN500 M2 PO (15:32)
[2018-08-06] MEDS ORDERED: GABAPENTIN300 MG PO (15:32)
[2018-08-06] MEDS ORDERED: ONDANSETRON4 MG/2 M1 IV (15:32)
[2018-08-06] MEDS ORDERED: Insulin Lispro SQ (15:32)
[2018-08-06] MEDS ORDERED: CARISOPRODOL350 MG PO (15:32)
[2018-08-06] MEDS ORDERED: PROMETHAZI25 MG/1 M2 IM (15:32)
[2018-08-06] MEDS ORDERED: Benzocaine/Menthol PO (15:32)
[2018-08-06] MEDS ORDERED: Morphine Sulfate Inj IV (15:32)
[2018-08-06] MEDS ORDERED: COLACE100 MG PO (15:32)
[2018-08-06] MEDS ORDERED: FENOFIBRATE145 MG PO (15:32)
[2018-08-06] MEDS ORDERED: MIRALAX17 GM PO (15:32)
[2018-08-06] MEDS ORDERED: Atorvastatin PO (15:32)
[2018-08-06] MEDS ORDERED: OXYCODONE-ACET1 EAC1 PO (15:32)
[2018-08-06] MEDS ORDERED: Magnesium/Alum/Simethicone PO (15:32)
[2018-08-06] MEDS ORDERED: PROTONIX40 MG/ML PO (15:32)
[2018-08-06 16:53] VITALS: BP 158/72
--- NOTE | 2018-08-07 16:13 | Discharge Summary ---
HISTORY OF PRESENT ILLNESS: Mr. Marie is a 52-year-old gentleman who was admitted with weakness, loss of balance and coordination. He complained of left hand numbness and pain that began at the end of June. The next day, it radiated up to his arm. Two to three days later, it spread to all his extremities. Around July 02, this when all the extremities were affected. The pain became sharp and constant in his arms with areas of sensitivity to touch. The pain in his legs was cramping. He had an MRI which was negative. His PCP had put him on steroids, which did not relieve his symptoms and his embedder stopped his fenofibrate, Lipitor, and niacin, which did not help either. He denied changes to swallowing, vision, and fecal or urinary incontinence. PAST MEDICAL HISTORY: Significant for type 2 diabetes, obstructive sleep apnea, hyperlipidemia, and gastroesophageal reflux disease. PAST SURGICAL HISTORY: Septoplasty and appendectomy. FAMILY HISTORY: He has a family history of Parkinson's in the mother; diabetes in his grandparents, father, brothers; cancer in his brother; and CVA in his grandparent. SOCIAL HISTORY: He smoked cigarettes for 30 years. Drinks alcohol occasionally. Denies illicit drugs. ALLERGIES: NO KNOWN ALLERGIES. ADMITTING DIAGNOSES: 1. Ataxia, neuropathy, myopathy. 2. Type 2 diabetes mellitus. 3. Obstructive sleep apnea. 4. Gastroesophageal reflux disease. 5. Hyperlipidemia. 6. Hypokalemia. 7. Hypermagnesemia. DISCHARGE DIAGNOSES: 1. C4-C5 compressive myelopathy, status post C4-C6 anterior cervical discectomy and fusion on 08/[address] Bhatti. 2. Type 2 diabetes mellitus. 3. Gastroesophageal reflux disease. 4. Hypertension. 5. Hyperlipidemia. 6. Ambulatory dysfunction. 7. Obstructive sleep apnea. HOSPITAL COURSE: Dr. Bhatti saw the patient today and the patient was able to lift his arms above his head, was able to touch his thumb to each finger in a rapid sequence and was able to ambulate with minimal assistance without a walker for a few steps around his bed. The patient will be discharged to [place] inpatient re[facility]. He will remain on a regular diet. He has been on dexamethasone 4 mg q.6 hours, which was discontinued by Dr. Bhatti today. Hemovac to be discontinued prior to transfer. Overall, his physical exam is within normal limits. We will ask that incentive spirometry be used as the patient has an occasional cough, nonproductive. Today's labs, sodium 134, potassium 4.6, chloride 100, CO2 of 23, BUN 24, creatinine 0.98, and glucose 334. WBC is a 15.5, hemoglobin 15.5, hematocrit 45.1, platelets 407, and neutrophils 87.8. The patient's is bedside. She nor patient have any questions at this time. Dictated by Donell Anderson, EUGENIE Bennett Giles MD HWP/MODL /[id number]
== END 2018-08-06 18:51 | DRG 472 ==
LOC: ER 16:39 → ERHOLD 19:24 → IMCU 08-02 15:29 → MED/SURG 08-03 12:51
PROVIDERS: ADMIT Internal Medicine; ATTEND Internal Medicine
PROC: 0RG20K0 Fusion of 2 or more Cervical Vertebral Joints with Nonautologous Tissue Substitute, Anterior Approach, Anterior Column, Open Approach (ICD-10-PCS; principal; 2018-08-04 10:30)
DX: M50.021 Cervical disc disorder at C4-C5 level with myelopathy (principal); M47.12 Other spondylosis with myelopathy, cervical region; G95.89 Other specified diseases of spinal cord; M48.02 Spinal stenosis, cervical region; Z91.81 History of falling; E11.9 Type 2 diabetes mellitus without complications; I10 Essential (primary) hypertension; G62.9 Polyneuropathy, unspecified; G72.9 Myopathy, unspecified; K21.9 Gastro-esophageal reflux disease without esophagitis; Z83.3 Family history of diabetes mellitus; Z80.9 Family history of malignant neoplasm, unspecified; Z82.3 Family history of stroke; Z84.89 Family history of other specified conditions; Z72.0 Tobacco use; F10.10 Alcohol abuse, uncomplicated; G47.33 Obstructive sleep apnea (adult) (pediatric); E87.6 Hypokalemia; E83.41 Hypermagnesemia; E78.5 Hyperlipidemia, unspecified; R20.2 Paresthesia of skin; Z79.4 Long term (current) use of insulin
CPT/HCPCS: 36415; 70551; 71045; 72040; 72141; 77003; 80048; 80053; 80061; 81001; 82085; 82550; 82948; 83036; 83735; 83874; 83880; 84439; 84443; 85025; 85610; 85730; 87040; 87086; 88304; 96372; 96374; 97139; 99285; J0690; J1100; J2001; J2060; J2250; J2270; J2405; J7799

== ENCOUNTER → 2018-09-02 | Outpatient (CLI) | payer BC ==
[~2018-09-02] MED LIST changes: +ACETAMINOPHEN325 M1 PO; +AMBIEN5 MG PO; +Atorvastatin PO; +Benzocaine/Menthol PO; +CARISOPRODOL350 MG PO; +COLACE100 MG PO; +Chloraseptic MM; +DEXTROSE 50%-WA50 M1 IV; +FENOFIBRATE145 MG PO; +FLUTICASONE INH; +GABAPENTIN300 MG PO; +HDR2V IV; +HYDRALAZIN20 MG/1 ML IV; +Insulin Lispro SQ; +LIPITOR40 MG PO; +MIRALAX17 GM PO; +Magnesium/Alum/Simethicone PO; +Morphine Sulfate Inj IV; +NIACIN500 M2 PO; +NORVASC10 MG PO; +NUVIGIL150 MG PO; +OMEPRAZOLE40 MG PO; +ONDANSETRON4 MG/2 M1 IV; +OXYCODONE-ACET1 EAC1 PO; +PREDNISONE20 MG PO; +PROMETHAZI25 MG/1 M2 IM; +PROTONIX40 MG/ML PO; +Sodium Chloride Flush INJ; +VITAMIN D250000 UNIT PO
--- NOTE | 2018-09-03 07:14 | Diagnostic Imaging Report ---
Exam: Cervical spine complete with flexion and extension views History: Cervical disc herniation Comparison: Postoperative radiograph 08/05/2018 Findings: The cervical spine is visualized from the skull base to the top of T1 on the lateral radiograph. Post surgical changes related to anterior fusion of C4-C6, unchanged, with an intact plate and screw construct. Surgical drain has been removed. Prevertebral soft tissues are of normal thickness. Flexion and extension radiographs show no evidence of inducible malalignment. Atlantoaxial interval is within normal limits. Impression: Intact surgical hardware related to anterior fusion of C4-C6, without inducible malalignment. Signed by: Dr. Akira Torres M.D. on 09/03/2018 7:10 AM
== END ==
LOC: RAD 12:34
PROVIDERS: ATTEND Neurological Surgery
DX: M50.20 Other cervical disc displacement, unspecified cervical region (principal); Z98.1 Arthrodesis status
CPT/HCPCS: 72050

== ENCOUNTER 2018-09-27 17:56 | Inpatient (IN) | payer BC ==
[~2018-09-27] VITALS: Ht 172.7 cm; Wt 86.6 kg
[~2018-09-27 17:56] MED LIST changes: -NORVASC10 MG PO
[2018-09-27] MEDS ORDERED: SODIUM CHLORIDE 0.9% 1000ML 1,000 ML IV STA (17:59)
--- OUTSIDE RECORDS SUMMARY | 2018-09-27 17:59 | XMS REPORT ---
Author Author [facility] Address Unknown Phone Unavailable Care Team Providers Care Eeg Technologist Name Role Phone CARLOS VALDEZ Unavailable Unavailable FABY MONROE Unavailable Unavailable Problems This patient has no known problems. Allergies, Adverse Reactions, Alerts This patient has no known allergies or adverse reactions. Medications This patient has no known medications. Results Test Description Test Time Test Comments Text Results Atomic Results Result Comments SPINE CERVICAL AP LAT FLEX EXT 2018-09-03 07:08:00 [place] [address] Patient Name: KJ LIGHT MR #: [id number] : 1965 Age/Sex: 52/M Req #: [id number] Adm Physician: Ordered by: CARLOS VALDEZ MD Report #: [id number] Location: [facility] Room/Bed: Procedure: [id number] DX/SPINE CERVICAL AP LAT FLEX EXT Exam Date: 09/02/18 Exam Time: 1300 REPORT STATUS: Signed Exam: Cervical spine complete with flexion and extension views History: Cervical disc herniation Comparison: Postoperative radiograph 08/05/2018 Findings: The cervical spine is visualized from the skull base to the top of T1 on the lateral radiograph. Post surgical changes related to anterior fusion of C4-C6, unchanged, with an intact plate and screw construct. Surgical drain has been removed. Prevertebral soft tissues are of normal thickness. Flexion and extension radiographs show no evidence of inducible malalignment. Atlantoaxial interval is within normal limits. Impression: Intact surgical hardware related to anterior fusion of C4-C6, without inducible malalignment. Signed by: Dr. Cindy Tatum M.D. on 09/03/2018 7:10 AM Dictated By: CINDY TATUM MD 9 Transcribed By: KALEN on 09/03/18709 COPY TO: CARLOS VALDEZ MD C-SPINE 2 VIEWS AP LATERAL 2018-08-05 06:45:00 [place] [address] Patient Name: KJ LIGHT MR #: [id number] : 1965 Age/Sex: 52/M Req #: [id number] Adm Physician: FABY MONROE MD Ordered by: CARLOS VALDEZ MD Report #: [id number] Location: MED/SURG Room/Bed: [facility] Procedure: [id number] DX/C-SPINE 2 VIEWS AP LATERAL Exam Date: 08/05/18 Exam Time: 534 REPORT STATUS: Signed Cervical Spine, 2 views HISTORY: Pain COMPARISON: None. FINDINGS: Limited sensitivity for detection of subtle fractures and ligamentous abnormalities. On the lateral view, the cervical spine is visualized from the skull base to C7. The alignment is normal. No acute displaced fracture involving the visualized cervical spine. Status post anterior fusion of C4-C6. Surgical drain in place. Hardware is intact. IMPRESSION: Postsurgical changes of anterior C4-C6 fusion. Intact hardware. Surgical drain in place. Signed by: Dr. Lizandro Cueva MD on 08/05/2018 6:47 AM Dictated By: LIZANDRO CUEVA MD 6 Transcribed By: KALEN on 08/05/18646 COPY TO: CARLOS VALDEZ MD MRI SPINE CERVICAL WO 2018-08-02 15:55:00 [place] [address] Patient Name: KJ LIGHT MR #: [id number] : 1965 Age/Sex: 52/M Req #: [id number] Adm Physician: FABY MONROE MD Ordered by: KRISTINA HOLLEY M.D. Report #: [id number] Location: [facility] Room/Bed: [place] [address] Procedure: [id number] MRI/MRI SPINE CERVICAL WO Exam Date: Exam Time: REPORT STATUS: Signed Exam: Cervical spine MRI without IV contrast History: Unilateral weakness, sensory disturbance, ataxia Comparison studies: None Technique: Sagittal T1, T2 and IR, axial T2 and axial gradient echo Intravenous contrast: None Findings: Exam limited by artifacts related to patient motion. Alignment: Mild kyphotic curvature from C4 to C7. Cervicomedullary junction: No abnormalities. Patent foramen magnum. Soft tissues: No T2 hyperintense inflammatory changes. Spinal cord: Focal increased T2 signal changes in the cord centered at C4-C5 at the location of severe degenerative canal stenosis indicative of compressive myelopathy (i.e. edema, ischemia and/or gliosis). Vertebrae: No fractures, infection or neoplasm. Degenerative changes: C2-C3: Mildly degenerated disc. Uncovertebral facet arthrosis result in moderate left foraminal stenosis. No significant canal or right foraminal stenosis. C3-C4: Mildly degenerated disc. Small disc osteophyte complex, uncovertebral arthrosis and facet arthrosis with moderate bilateral foraminal stenosis and mild canal stenosis. C4-C5: Moderately degenerated disc. Disc osteophyte complex, uncovertebral arthrosis and facet arthrosis with severe canal stenosis, severe left foraminal stenosis and moderate right foraminal stenosis. C5-C6: C5-C6: Moderately degenerated disc. Disc osteophyte complex and uncovertebral arthrosis with mild canal stenosis and moderate bilateral foraminal stenosis. C6-C7: Moderately degenerated disc. Asymmetric left disc osteophyte complex and uncovertebral arthrosis with mild canal stenosis and moderate bilateral foraminal stenosis). C7-T1: Mild left uncovertebral arthrosis with minimal left foraminal stenosis. Patent canal and right foramen. IMPRESSION: Limited exam due to motion artifacts. In spite of limitations: 1. 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 2. Moderately degenerated disks from C4 to C6. 3. Mild canal stenosis at C3-C4, C5-C6 and at C6-C7. 4. Varying degrees of moderate to severe degenerative foraminal stenosis due to uncovertebral and facet arthrosis from C2 to C7 as described. Findings discussed with ADOLPH Smith at 4:10 PM on 08/02/2018. Signed by: Dr. Cindy Fay M.D. on 08/02/2018 4:12 PM Dictated By: CINDY FAY MD 161 Transcribed By: KALEN on 08/02/18 1612 COPY TO: KRISTINA HOLLEY MD MRI BRAIN WO 2018-08-02 15:51:00 [place] [address] Patient Name: KJ LIGHT MR #: [id number] : 1965 Age/Sex: 52/M Req #: [id number] Adm Physician: FABY MONROE MD Ordered by: KRISTINA HOLLEY M.D. Report #: [id number] Location: [facility] Room/Bed: [place] [address] Procedure: [id number] MRI/MRI BRAIN WO Exam Date: Exam Time: REPORT STATUS: Signed Exam: Brain MRI without IV contrast History: Unilateral weakness, sensory disturbance, ataxia Comparison studies: None Technique: Sagittal and axial T2 FS, axial DWI, axial T2*GRE, axial T1 FLAIR and axial coronal T2 FLAIR. Intravenous contrast: None Findings: Scalp: Normal in signal. No masses. Bone marrow: Normal in signal intensity. Brain sulci: Appropriate for age. Ventricles: Normal in size. No hydrocephalus. Extra ax ial spaces: No mass, no fluid collection. Parenchyma: No mass, hemorrhage or acute ischemia. A few scattered small T2 FLAIR hyperintense foci in the supratentorial white matter are nonspecific but most compatible with chronic microvascular ischemic changes. Suprasellar region: No abnormalities. Craniocervical junction: Patent foramen magnum. No Chiari malformation. Vessels: Normal flow-voids in the arteries and sinuses. Included paranasal sinuses: Scattered nonspecific T2 hyperintense mucosal thickening throughout the bilateral ethmoid air cells and maxillary sinuses. IMPRESSION: 1. No acute intracranial abnormalities. 2. Minimal supratentorial chronic microvascular ischemic changes. Signed by: Dr. Cindy Fay M.D. on 08/02/2018 3:55 PM Dictated By: CINDY FAY MD 1555 Transcribed By: KALEN on 08/02/18 1398 COPY TO: KRISTINA HOLLEY MD CHEST SINGLE (PORTABLE) 2018-08-01 19:52:00 [place] [address] Patient Name: KJ LIGHT MR #: [id number] : 1965 Age/Sex: 52/M Req #: [id number] Adm Physician: FABY MONROE MD Ordered by: ALTAGRACIA TODD MD Report #: [id number] Location: [facility] Room/Bed: [place] [address] Procedure: [id number] DX/CHEST SINGLE (PORTABLE) Exam Date: 08/01/18 Exam Time: 1749 REPORT STATUS: Signed EXAMINATION: CHEST SINGLE (PORTABLE) INDICATION: r/o tumor [id number] COMPARISON: None FINDINGS: AP view TUBES and LINES: None. LUNGS: Lungs are well inflated. Lungs are clear. There is no evidence of pneumonia or pulmonary edema. PLEURA: No pleural effusion or pneumothorax. HEART AND MEDIASTINUM: The cardiomediastinal silhouette is unremarkable.. BONES AND SOFT TISSUES: No acute osseous lesion. Soft tissues are unremarkable. UPPER ABDOMEN: No free air under the diaphragm. IMPRESSION: No acute thoracic abnormality. Signed by: Dr. Jesus Maxwell M.D. on 08/01/2018 7:52 PM Dictated By: JESUS MAXWELL MD 51 Transcribed By: KALEN on 08/01/181951 COPY TO: ALTAGRACIA TODD MD
[2018-09-27 18:31] LABS: BASOPHILS # (AUTO) 0.1 (0.0-0.1); BASOPHILS % 0.6 % (0.0-1.0); EOSINOPHILS # (AUTO) 0.5 (0.0-0.4); EOSINOPHILS % 4.6 % (0.0-6.0); HEMATOCRIT 40.1 % (38.2-49.6); HEMOGLOBIN 13.3 g/dL (14.0-18.0); LYMPHOCYTES # (AUTO) 2.4 (1.0-3.2); LYMPHOCYTES % 22.5 % (18.0-39.1); MEAN CORPUSCULAR HEMOGLOBIN 29.7 pg (28-32); MEAN CORPUSCULAR HGB CONC 33.2 g/dL (31-35); MEAN CORPUSCULAR VOLUME 89.5 fL (81-99); MONOCYTES # (AUTO) 0.8 (0.2-0.8); MONOCYTES % 7.2 % (4.4-11.3); NEUTROPHILS # (AUTO) 6.8 (2.1-6.9); NEUTROPHILS % 64.7 % (38.7-80.0); PLATELET COUNT 290 x10e3/uL (140-360); RED BLOOD COUNT 4.48 x10e6/uL (4.3-5.7); RED CELL DISTRIBUTION WIDTH 13.8 % (11.7-14.4)
[2018-09-27] MEDS ORDERED: SODIUM CHLORIDE 0.9% 1000ML 1,000 ML ONE (18:41)
[2018-09-27 18:52] LABS: ALBUMIN 3.4 g/dL (3.5-5.0); ALBUMIN/GLOBULIN RATIO 1.4 (0.8-2.0); ANION GAP 18.1 mmol/L (8-16); CALCIUM 8.4 mg/dL (8.4-10.2); CREATININE, SERUM 1.63 mg/dL (0.72-1.25); POTASSIUM 4.1 mmol/L (3.5-5.1)
[2018-09-27 19:00] LABS: CREATINE KINASE MB 2.7 ng/mL (0-5.0)
--- NOTE | 2018-09-27 19:02 | NUR ---
2ND LITER OF N.S. INFUSING
[2018-09-27] MEDS ORDERED: SODIUM CHLORIDE 0.9% 1000ML 1,000 ML IV ONE (19:15)
--- NOTE | 2018-09-27 19:21 | Diagnostic Imaging Report ---
EXAMINATION: CHEST SINGLE (PORTABLE) INDICATION: ^Sepsis look for PNA, effusions COMPARISON: 08/01/2018 FINDINGS: AP view TUBES and LINES: None. LUNGS: Lungs are well inflated. There is no evidence of pneumonia or pulmonary edema. PLEURA: No pleural effusion or pneumothorax. HEART AND MEDIASTINUM: The cardiomediastinal silhouette is unremarkable. BONES AND SOFT TISSUES: No acute osseous lesion. Soft tissues are unremarkable. UPPER ABDOMEN: No free air under the diaphragm. IMPRESSION: No acute thoracic abnormality. Signed by: Dr. Lizandro Christian MD on 09/27/2018 7:18 PM
--- NOTE | 2018-09-27 19:35 | Diagnostic Imaging Report ---
History: Dizziness, weakness Comparison studies: None Technique: Axial images were obtained from the skull base to the vertex. Coronal and sagittal reconstructions obtained from the axial data. Dose modulation, iterative reconstruction, and/or weight based adjustment of the mA/kV was utilized to reduce the radiation dose to as low as reasonably achievable. Intravenous contrast: None Findings: Scalp/skull: No abnormalities. No fractures, blastic or lytic lesions. Extra-axial spaces: No masses. No fluid collections. Brain sulci: Appropriate for age. Ventricles: Normal in size and configuration. No hydrocephalus. Parenchyma: No abnormal densities. No masses, hemorrhage, acute or chronic cortical vascular insults. Sellar/suprasellar region: No abnormalities Craniocervical junction: Patent foramen magnum. No Chiari one malformation. Incidental findings: None. IMPRESSION: No abnormalities. Signed by: Dr. Marquis Lopez M.D. on 09/27/2018 7:32 PM
[2018-09-27 19:57] LABS: BILIRUBIN,URINE NEGATIVE (NEGATIVE); CLARITY,URINE CLEAR (CLEAR); COLOR,URINE YELLOW (YELLOW); KETONES,URINE NEGATIVE (NEGATIVE); LEUKOCYTE ESTERASE ,URINE NEGATIVE (NEGATIVE); NITRITE,URINE NEGATIVE (NEGATIVE); PROTEIN,URINE DIPSTICK NEGATIVE (NEGATIVE); URINE UROBILINOGEN 0.2 mg/dL (0.2 - 1)
[2018-09-27 20:10] LABS: BACTERIA,URINE RARE /HPF; EPITHELIAL CELLS,URINE RARE /LPF; RBC,URINE 0-5 /HPF (0-5); WBC,URINE (MAN) 0-5 /HPF (0-5)
[2018-09-27] MEDS ORDERED: ONDANSETRON HCL INJ 2MG/ML 2ML 2 MG/ML VIAL IV PRN (20:30)
[2018-09-27] MEDS ORDERED: DEXTROSE 50% SYRINGE 50 ML IV PRN (20:30)
[2018-09-27] MEDS ORDERED: GABAPENTIN 100 MG CAP PO SCH (21:00)
[2018-09-27] MEDS: INSULIN REGULAR, HUMAN 100 UNIT/1 ML 3ML VIAL SQ SCH ×2 (21:22→21:27)
[2018-09-27 21:50] VITALS: BP 129/85
[2018-09-27] MEDS: SODIUM CHLORIDE 0.9% 1000ML 1,000 ML IV SCH (21:50)
--- NOTE | 2018-09-27 21:50 | NUR ---
PATIENT IS AOX4, NO SIGNS OF DISTRESS NOTED. FAMILY MEMBER IS PRESENT AT BEDSIDE AND ALL VITAL ARE STABLE. BLOOD SUGAR WAS 79, BUT PATIENT'S HAS FOOD FOR HIM THAT HE IS ABOUT TO EAT. FLUIDS ARE RUNNING AT 125 ML\HR, BED IS LOCKED AND IN LOWEST POSITION, SIDE RAILS ARE UP, CALL LIGHT WITHIN EASY REACH, WILL CONTINUE TO MONITOR.
[2018-09-27] MEDS ORDERED: ACETAMINOPHEN 325 MG TAB PO PRN (23:30)
[2018-09-27 23:39] VITALS: BP 129/85
[2018-09-27 23:40] VITALS: BP 129/85
[2018-09-28] VITALS (10 sets, daily range): BP systolic 101–161; BP diastolic 69–102
[2018-09-28 05:40] LABS: BASOPHILS # (AUTO) 0.1 (0.0-0.1); BASOPHILS % 0.7 % (0.0-1.0); EOSINOPHILS # (AUTO) 0.6 (0.0-0.4); HEMATOCRIT 41.2 % (38.2-49.6); HEMOGLOBIN 13.5 g/dL (14.0-18.0); LYMPHOCYTES # (AUTO) 3.5 (1.0-3.2); LYMPHOCYTES % 37.2 % (18.0-39.1); MEAN CORPUSCULAR HEMOGLOBIN 29.3 pg (28-32); MEAN CORPUSCULAR HGB CONC 32.8 g/dL (31-35); MEAN CORPUSCULAR VOLUME 89.4 fL (81-99); MONOCYTES # (AUTO) 0.7 (0.2-0.8); MONOCYTES % 7.6 % (4.4-11.3); NEUTROPHILS # (AUTO) 4.6 (2.1-6.9); NEUTROPHILS % 48.2 % (38.7-80.0); PLATELET COUNT 300 x10e3/uL (140-360); RED BLOOD COUNT 4.61 x10e6/uL (4.3-5.7); RED CELL DISTRIBUTION WIDTH 13.8 % (11.7-14.4)
[2018-09-28] MEDS: SODIUM CHLORIDE 0.9% 1000ML 1,000 ML IV SCH ×3 (05:50→20:29)
[2018-09-28 06:08] LABS: ALANINE AMINOTRANSFERASE 11 IU/L (0-55); ALBUMIN 3.3 g/dL (3.5-5.0); ALBUMIN/GLOBULIN RATIO 1.4 (0.8-2.0); ALKALINE PHOSPHATASE 58 IU/L (40-150); BLOOD UREA NITROGEN 15 mg/dL (7-26); BUN/CREATININE RATIO 15 (6-25); CALCIUM 8.6 mg/dL (8.4-10.2); CARBON DIOXIDE 21 mmol/L (22-29); CHLORIDE 112 mmol/L (98-107); EST GLOMERULAR FILTRATION RATE > 60 ML/MIN (60-); GLUCOSE 126 mg/dL (74-118); SODIUM 140 mmol/L (136-145)
[2018-09-28 06:39] LABS: CREATINE KINASE 102 IU/L (30-200)
--- NOTE | 2018-09-28 07:00 | NUR ---
RCD PT AT BED PT IS ALERT AND ORIENTED RESTING ON BED NO SIGNS OF ANY DISTRESS NOTED IV PATENT AND RUNNING 125 ML BED LOW AND LOCKED CALL LIGHT IN REACH
[2018-09-28] MEDS ORDERED: ACETAMINOPHEN 325 MG TAB PO PRN (07:30)
[2018-09-28] MEDS ORDERED: ZOLPIDEM TARTRATE 5 MG TAB PO PRN (07:30)
[2018-09-28] MEDS: INSULIN REGULAR, HUMAN 100 UNIT/1 ML 3ML VIAL SQ SCH ×4 (07:30→20:29)
[2018-09-28] MEDS: JARDIANCE PO SCH (09:00)
[2018-09-28] MEDS: ARMODAFINIL 150 MG PO SCH (09:00)
[2018-09-28] MEDS: INSULIN DEGLUDEC INJ SCH (09:00)
[2018-09-28] MEDS: GABAPENTIN 100 MG CAP PO SCH ×3 (09:00→20:29)
[2018-09-28] MEDS ORDERED: INSULIN DEGLUDEC INJ SCH (09:00)
[2018-09-28] MEDS ORDERED: JARDIANCE PO SCH (09:00)
[2018-09-28] MEDS: FENOFIBRATE 145 MG TAB PO SCH (09:00)
[2018-09-28] MEDS ORDERED: ARMODAFINIL 150 MG TAB PO SCH (09:00)
--- NOTE | 2018-09-28 09:00 | NUR ---
SCDS ON BOTH LEGS
--- NOTE | 2018-09-28 09:47 | NUR ---
DC TELEY FOR MRI BY ORDER
--- NOTE | 2018-09-28 09:51 | NUR ---
PT IS CLAUSTROPHOBIC FOR MRI PAGED AND NOTIFIED [facility] FENCE MACHINE OPERATOR GOT NEW ORDERS
[2018-09-28] MEDS ORDERED: LORAZEPAM INJ 2 MG/ML VIAL IV ONE (10:00)
--- NOTE | 2018-09-28 10:00 | NUR ---
PT WENT TO PROCEDURE IN SAFE CONDITION
--- NOTE | 2018-09-28 11:58 | Diagnostic Imaging Report ---
History: Passed out one day ago Comparison studies: CT head 09/27/2018 Technique: Sagittal T2; axial DWI, FLAIR, MPGR, T1, Coronal FLAIR. Intravenous contrast: None Findings: Scalp: Normal in signal . No masses . Bone marrow: Normal in signal intensity. Extra-axial: No masses, no fluid collections. Brain sulci: Appropriate for age. Ventricles: Normal in size . No hydrocephalus . Parenchyma: Few punctate T-2/flair hyperintensities of the periventricular and deep white matter, nonspecific and likely without clinical significance No masses, hemorrhage, acute or chronic vascular insults. Suprasellar region: No abnormalities. Craniocervical junction: No abnormalities. Patent foramen magnum. No Chiari one malformation. Vessels: Normal flow-voids in the arteries and sinuses. Mild mucosal thickening at the bilateral maxillary sinuses, nonspecific. IMPRESSION: 1. No acute abnormalities or finding to explain patient's symptoms Signed by: DR Deric Flores M.D. on 09/28/2018 11:55 AM
[2018-09-28 14:27] LABS: CREATINE KINASE 97 IU/L (30-200)
[2018-09-28] MEDS: FAMOTIDINE 20 MG TAB PO SCH (16:30)
--- NOTE | 2018-09-28 19:10 | NUR ---
PT RESTING ON BED BED SIDE REPORT GIVEN TO ONCOMING NURSE
--- NOTE | 2018-09-28 19:16 | NUR ---
PATIENT REFUSING SCD AND IV FLUIDS. PATIENT WANTING TO LEAVE AMA. CALLED AND SPOKE TO [facility] MOLD UNLOADER. SHE DOES NOT WANT TO DC PATIENT BECAUSE DR. HOLLEY HAS NOT SEEN PATIENT. INFORMED PATIENT AND ABOUT HAVING TO SIGN OUT AMA AND INSURANCE NOT PAYING FOR STAY. PATIENT AND DECIDED TO STAY UNTIL MORNING TO SEE IF [facility] WOULD DC PATIENT. PATIENT CONTINUES TO REFUSES IV FLUIDS AND SCDS.
[2018-09-28] MEDS ORDERED: ATORVASTATIN 20 MG TAB PO SCH (21:00)
[2018-09-28] MEDS ORDERED: ATORVASTATIN 40 MG TAB PO SCH (21:00)
[2018-09-28] MEDS ORDERED: NIACIN 500 MG TABSR PO SCH (21:00)
[2018-09-28] MEDS ORDERED: NON-FORMULARY MEDICATION (Atorvastatin Calcium (Lipitor) 40 MG) PO SCH (21:00)
--- NOTE | 2018-09-29 00:57 | Consultation ---
DATE OF CONSULTATION: Pulmonary Critical Care Consultation CHIEF COMPLAINT: Syncope. HISTORY OF PRESENT ILLNESS: The patient is a 52-year-old man. He has a history of diabetes. He also had a recent anterior cervical diskectomy for radiculopathy in his arm. This apparently went well. The patient was getting out of his car yesterday when he became dizzy and passed out briefly. He stood up and passed out again. He did not have any prolonged loss of consciousness. He did not have any generalized seizure activity. He denies any focal weakness. He did note that his blood pressure was low after the incident. PAST SURGICAL HISTORY: 1. Recent cervical anterior discectomy. 2. Appendectomy. 3. Inguinal hernia repair. PAST MEDICAL HISTORY: 1. Hypertension. 2. Type 2 diabetes. 3. Gastroesophageal reflux. FAMILY HISTORY: Family history is significant for cerebrovascular disease and diabetes. SOCIAL HISTORY: The patient is a smoker and a drinker. ALLERGIES: HE HAS NO KNOWN DRUG ALLERGIES. REVIEW OF SYSTEMS: There is no headache. He has no neck pain. He is not complaining of any chest pain. He denies difficulty breathing or cough. He has no abdominal pain. There is no nausea or vomiting. He has no focal neurological complaints. He did have some transient syncope. PHYSICAL EXAMINATION: VITAL SIGNS: The patient is afebrile. The blood pressure is 140/102 and the saturation is 99%. HEENT: Shows no facial swelling or erythema. The nasal mucosa is normal. The oropharynx is normal. LYMPHATIC: Shows no submandibular, cervical, or supraclavicular adenopathy. CARDIAC: Reveals regular rate and rhythm with normal S1 and S2. LUNGS: Auscultation of lungs reveals rhonchorous breath sounds bilaterally. There is no wheezing. ABDOMEN: Soft and nontender. There is no rebound or guarding. EXTREMITIES: Show no leg edema. LABORATORY DATA: White blood cell count, hemoglobin, and platelet count are within normal limits. BUN to creatinine ratio is normal. Other electrolytes are within normal limits. Urinalysis is normal. RADIOGRAPHIC DATA: 1. Chest x-ray shows no acute abnormalities. 2. MRI of the brain shows no acute abnormalities. IMPRESSION: 1. Syncope of unclear cause. 2. Type 2 diabetes. 3. Hypertension. PLAN: 1. Complete cardiac and neurological evaluation. 2. Orthostatic blood pressure and pulse. 3. Monitor blood sugars. MD DK Campos /[id number]
[2018-09-29] MEDS: SODIUM CHLORIDE 0.9% 1000ML 1,000 ML IV SCH (02:12)
[2018-09-29 04:56] VITALS: BP 135/84
[2018-09-29 05:23] LABS: BASOPHILS # (AUTO) 0.1 (0.0-0.1); BASOPHILS % 0.6 % (0.0-1.0); EOSINOPHILS # (AUTO) 0.5 (0.0-0.4); EOSINOPHILS % 4.5 % (0.0-6.0); HEMATOCRIT 43.7 % (38.2-49.6); HEMOGLOBIN 14.8 g/dL (14.0-18.0); LYMPHOCYTES # (AUTO) 2.9 (1.0-3.2); LYMPHOCYTES % 29.1 % (18.0-39.1); MEAN CORPUSCULAR HEMOGLOBIN 29.6 pg (28-32); MEAN CORPUSCULAR HGB CONC 33.9 g/dL (31-35); MEAN CORPUSCULAR VOLUME 87.4 fL (81-99); MONOCYTES # (AUTO) 0.6 (0.2-0.8); MONOCYTES % 5.9 % (4.4-11.3); NEUTROPHILS # (AUTO) 5.9 (2.1-6.9); NEUTROPHILS % 59.5 % (38.7-80.0); PLATELET COUNT 299 x10e3/uL (140-360); RED CELL DISTRIBUTION WIDTH 13.4 % (11.7-14.4)
[2018-09-29 05:43] LABS: BLOOD UREA NITROGEN 12 mg/dL (7-26); BUN/CREATININE RATIO 13 (6-25); CALCIUM 9.1 mg/dL (8.4-10.2); CARBON DIOXIDE 23 mmol/L (22-29); CHLORIDE 108 mmol/L (98-107); CHOL/HDL RATIO 3.9 (3.9-4.7); CHOLESTEROL 154 MD/DL (0-199); CREATININE, SERUM 0.94 mg/dL (0.72-1.25); EST GLOMERULAR FILTRATION RATE > 60 ML/MIN (60-); GLUCOSE 74 mg/dL (74-118); HDL CHOLESTEROL 39 MG/DL (40-60); LDL CHOLESTEROL 99 MG/DL (60-130); MAGNESIUM 2.1 MG/DL (1.3-2.1); SODIUM 139 mmol/L (136-145); TRIGLYCERIDES 79 MG/DL (0-149)
[2018-09-29 05:50] LABS: B-TYPE NATRIURETIC PEPTIDE2 180.7 pg/mL (0-100)
[2018-09-29 06:03] LABS: FREE T4 (FREE THYROXINE) 0.92 ng/dL (0.8-1.8); THYROID STIMULATING HORMONE 2.488 uIU/mL (0.350-4.940)
[2018-09-29] MEDS: INSULIN REGULAR, HUMAN 100 UNIT/1 ML 3ML VIAL SQ SCH (07:30)
[2018-09-29 07:41] VITALS: BP 124/84
[2018-09-29] MEDS ORDERED: NORVASC10 MG PO (07:41)
[2018-09-29] MEDS: FENOFIBRATE 145 MG TAB PO SCH (07:59)
[2018-09-29] MEDS: AMLODIPINE BESYLATE 10 MG TAB PO SCH (07:59)
[2018-09-29] MEDS: GABAPENTIN 100 MG CAP PO SCH (07:59)
[2018-09-29] MEDS: FAMOTIDINE 20 MG TAB PO SCH (07:59)
[2018-09-29 08:02] VITALS: BP 124/84
[2018-09-29] MEDS: INSULIN DEGLUDEC INJ SCH (09:00)
[2018-09-29] MEDS: JARDIANCE PO SCH (09:00)
[2018-09-29] MEDS: ARMODAFINIL 150 MG PO SCH (09:00)
--- NOTE | 2018-09-29 11:50 | NUR ---
Rina Mcmullen NP was updated with patient's blood pressure readings, 117/79, 132/79, and echo report was given. Orders received to continue with discharge home.
[2018-09-29] MEDS ORDERED: NUVIGIL150 MG PO (12:02)
[2018-09-29] MEDS ORDERED: PREDNISONE20 MG PO (12:06)
[2018-09-29 12:16] VITALS: BP 132/79
--- NOTE | 2018-09-29 12:21 | NUR ---
Discharge instructions and prescription given to the patient, he verbalized understanding. IV to the left wrist/hand was removed with tip intact.
[2018-09-29] MEDS ORDERED: ONDANSETRON HCL 4 MG ORAL DISINTEGRATING TAB PO PRN (12:30)
--- NOTE | 2018-09-29 21:37 | Discharge Summary ---
ADMISSION DIAGNOSES: Syncope, type 2 diabetes, hypertension, hyperlipidemia, gastroesophageal reflux disease, ambulatory dysfunction. DISCHARGE DIAGNOSES: Syncope, type 2 diabetes, hypertension, hyperlipidemia, gastroesophageal reflux disease, ambulatory dysfunction, rule out cerebrovascular accident, rule out transient ischemic attack. HISTORY: The patient has a history of GERD, hyperlipidemia, obstructive sleep apnea, type 2 diabetes, hypertension, ambulatory dysfunction/ataxia. SURGICAL HISTORY: Appendectomy, bilateral inguinal hernia repair, septoplasty, and cervical fusion. FAMILY HISTORY: The patient's grandmother, grandfather, brother, and father had diabetes. The patient's grandfather had a stroke. The patient's brother had cancer. SOCIAL HISTORY: The patient admits to occasional alcohol use and smoking about 1 pack of cigarettes per week. HOSPITAL COURSE: A 52-year-old male presents with syncope episode x2. He was in the car yesterday when he felt dizzy and had double vision. There was no loss of consciousness. He noticed his blood pressure was low on the losartan, so he started to cut the dose in half. When EMS checked his blood pressure, his systolic blood pressure was around the 70s. The patient had a chest x-ray, which was negative. CT of the brain negative. MRI of the brain negative. Bilateral carotid Doppler negative. The patient's blood pressure improved off the losartan, but he did require Norvasc to be started. His echo showed an EF of 55% to 60% EF with impaired relaxation. The patient will discharge home and follow up with Dr. Garcia as already scheduled outpatient tomorrow and primary care in 1 to 2 weeks. The patient understands discharge instructions and agrees to plan. Vital signs stable, the patient afebrile. Dictated by Rina Mcmullen NP Bennett Giles MD ERICK/MODL /[id number]
== END 2018-09-29 12:36 | disposition home or self-care (01) | DRG 312 ==
LOC: ER 17:56 → ERHOLD 20:30 → MED/SURG2 21:33 → OBSVTOIN 09-28 11:53
PROVIDERS: ADMIT Internal Medicine; ATTEND Internal Medicine
DX: R55 Syncope and collapse (principal); I10 Essential (primary) hypertension; E11.9 Type 2 diabetes mellitus without complications; K21.9 Gastro-esophageal reflux disease without esophagitis; E78.5 Hyperlipidemia, unspecified; G47.30 Sleep apnea, unspecified; E86.0 Dehydration; G47.33 Obstructive sleep apnea (adult) (pediatric); R26.9 Unspecified abnormalities of gait and mobility
CPT/HCPCS: 36415; 70450; 70551; 71045; 80048; 80053; 80061; 81001; 82550; 82553; 82948; 83036; 83605; 83735; 83880; 84439; 84443; 84484; 85025; 93005; 93306; 93880; 99284; G0378; J2060; J7030

== ENCOUNTER → 2019-06-29 | Day surgery (SDC) | payer BC ==
[~2019-06-29] MED LIST changes: +DEXTROSE 5% 250ML 250 ML IV ONE; +HUMALOG100 UNIT/1 INJ; +HYOSCYAMINE 0.125 MG TAB ONE; +KETAMINE HCL INJ 50 MG/ML 10 ML VIAL ONE; +LIDOCAINE HCL 2% LOCAL INJ 5 ML SDV VIAL INJ ONE; +LOSARTAN POTASS25 MG PO; +LYRICA75 MG PO; +MIDAZOLAM HCL 2 MG/2 ML VIAL ONE; +NORVASC10 MG PO; +PROPOFOL IV EMULSION 10 MG/ML 20 ML VIAL ONE; +SYNJARDY 12.5-1 EACH PO
[2019-06-29 09:35] VITALS: BP 103/71
== END | disposition home or self-care (01) ==
LOC: OR 05:35
PROVIDERS: ATTEND Internal Medicine Gastroenterology
DX: K62.5 Hemorrhage of anus and rectum (principal); D12.3 Benign neoplasm of transverse colon; D12.4 Benign neoplasm of descending colon; K63.89 Other specified diseases of intestine; K59.00 Constipation, unspecified; K57.30 Diverticulosis of large intestine without perforation or abscess without bleeding; K64.8 Other hemorrhoids; K64.4 Residual hemorrhoidal skin tags; K29.60 Other gastritis without bleeding; G47.33 Obstructive sleep apnea (adult) (pediatric); E11.9 Type 2 diabetes mellitus without complications; E78.00 Pure hypercholesterolemia, unspecified; Z01.810 Encounter for preprocedural cardiovascular examination; Z79.4 Long term (current) use of insulin; Z68.28 Body mass index [BMI] 28.0-28.9, adult
CPT/HCPCS: 36415; 45380; 45384; 45385; 82948; 87635; 93005; J2001; J2250; J2704; J7070; 45378

== ENCOUNTER → 2020-11-22 | Outpatient (CLI) | payer OTHER ==
[~2020-11-22] MED LIST changes: -DEXTROSE 5% 250ML 250 ML IV ONE; -HYOSCYAMINE 0.125 MG TAB ONE; -KETAMINE HCL INJ 50 MG/ML 10 ML VIAL ONE; -LIDOCAINE HCL 2% LOCAL INJ 5 ML SDV VIAL INJ ONE; -MIDAZOLAM HCL 2 MG/2 ML VIAL ONE; -PROPOFOL IV EMULSION 10 MG/ML 20 ML VIAL ONE
== END ==
LOC: RAD 07:44
PROVIDERS: ATTEND Family Medicine
DX: M50.30 Other cervical disc degeneration, unspecified cervical region (principal)
CPT/HCPCS: 72040